=== PATIENT | female | born 1945 | race Caucasian/White ===

== ENCOUNTER → 2016-08-21 | Outpatient (CLI) | payer MEDICARE ==
--- NOTE | 2016-08-21 15:09 | REP ---
Whole body radionuclide bone scan: History: Breast carcinoma, hypercalcemia, elevated alkaline phosphatase. No comparison study. Technique: 21.7 mCi of technetium 99m MDP is injected and standard whole body bone scan imaging was acquired. Scintigraphic findings: There is arthritic uptake in the acromioclavicular joints, glenohumeral joints, hips, knees and feet bilaterally. Osteoarthritic facet disease uptake is seen in the lower lumbar spine and in the lower cervical spine. A rotoscoliosis is seen in the thoracolumbar spine with some degenerative disc uptake pattern. There is uptake in bilateral kidneys and in the urinary bladder. There is no evidence suggestive of skeletal metastatic disease. Impression: Arthritic and degenerative disc uptake pattern with multiple sites. No evidence to suggest skeletal metastatic disease. Signed by Duane Alvarado MD 08/21/2016 03:33 P
== END ==
LOC: M RAD 10:23
PROVIDERS: ATTEND Physician Assistant
DX: Z85.3 Personal history of malignant neoplasm of breast (principal); E83.52 Hypercalcemia; R74.8 Abnormal levels of other serum enzymes
CPT/HCPCS: 78306; A9503

== ENCOUNTER → 2016-09-01 | Outpatient (REF) | payer MEDICARE | LOC: M LAB REF 16:39 | PROVIDERS: ATTEND Nurse Practitioner Adult Health | DX: E83.52 Hypercalcemia (principal) ==

== ENCOUNTER → 2016-12-01 | Outpatient (REF) | payer MEDICARE | LOC: M LAB REF 12:35 | PROVIDERS: ATTEND Nurse Practitioner Adult Health | DX: N39.0 Urinary tract infection, site not specified (principal) ==

== ENCOUNTER → 2017-04-20 | Outpatient (REF) | payer MEDICARE | LOC: M LAB REF 11:46 | PROVIDERS: ATTEND Physician Assistant | DX: L02.416 Cutaneous abscess of left lower limb (principal) ==

== ENCOUNTER → 2017-06-24 | Outpatient (REF) | payer MEDICARE | LOC: M LAB REF 16:51 | PROVIDERS: ATTEND Nurse Practitioner Adult Health | DX: N39.0 Urinary tract infection, site not specified (principal) ==

== ENCOUNTER → 2017-09-21 | Outpatient (REF) | payer MEDICARE ==
[2017-09-22 16:10] LABS: FERRITIN 171 NG/ML (8-252)
== END ==
LOC: M LAB REF 15:21
DX: G25.81 Restless legs syndrome (principal)
CPT/HCPCS: 82728

== ENCOUNTER 2019-04-07 08:50 | Emergency (ER) | payer MEDICARE ==
[~2019-04-07] VITALS: Ht 172.7 cm; Wt 108.9 kg
[2019-04-07] MEDS ORDERED: LISI-538 (08:59)
[2019-04-07] MEDS ORDERED: AMLO5TAB6 (08:59)
[2019-04-07] MEDS ORDERED: ANAS1TAB2 (08:59)
[2019-04-07] MEDS ORDERED: diazePAM 5 MG TAB PO ONE (09:45)
--- NOTE | 2019-04-07 10:19 | REP ---
Abdomen three views: There are two supine one upright views of the abdomen: The bowel gas pattern is normal. There are nonspecific pelvic calcifications. There is lumbar scoliosis convex left and degenerative disc disease in the lumbar spine. Impression: Normal bowel gas pattern. Nonspecific pelvic calcifications. Electronically Signed by Ciro Hilton MD 04/07/2019 10:10 A
[2019-04-07] MEDS ORDERED: FLEET ENEMA PR ONE (10:45)
[2019-04-07] MEDS ORDERED: MOM 30ML SUSPENSION UDC PO ONE (11:30)
[2019-04-07 11:47] VITALS: BP 168/85
[2019-04-07] MEDS ORDERED: MIRA3350 PO (11:48)
== END 2019-04-07 12:05 | disposition home or self-care (01) ==
LOC: M ED 08:50
DX: K59.00 Constipation, unspecified (principal); I10 Essential (primary) hypertension; Z79.899 Other long term (current) drug therapy

== ENCOUNTER → 2020-02-19 | Outpatient (REF) | payer MEDICARE ==
[~2020-02-19] MED LIST: AMLO1TAB24; ANAS1TAB2; LISI-538; MIRA3350 PO
[2020-02-20 14:03] LABS: TOTAL PROTEIN 7.9 GM/DL (6.4-8.2)
[2020-02-22 13:10] LABS: ALBUMIN 4.38 GM/DL (3.29-5.55); ALBUMIN % 55.4 % (55.8-66.1); ALPHA-1-GLOBULIN % 3.4 % (2.9-4.9); ALPHA-1-GLOBULINS 0.27 GM/DL (0.17-0.41); ALPHA-2-GLOBULINS % 12.7 % (7.1-11.8); BETA-1-GLOBULINS 0.57 GM/DL (0.28-0.60); BETA-1-GLOBULINS % 7.2 % (4.7-7.2); BETA-2-GLOBULINS 0.58 GM/DL (0.19-0.55); BETA-2-GLOBULINS % 7.3 % (3.2-6.5); GAMMA GLOBULINS 1.11 GM/DL (0.65-1.58)
== END ==
LOC: M LAB REF 12:03
PROVIDERS: ATTEND Nurse Practitioner Adult Health
DX: R93.6 Abnormal findings on diagnostic imaging of limbs (principal)

== ENCOUNTER → 2020-02-20 | Outpatient (REF) | payer MEDICARE | LOC: M LAB REF 12:12 | PROVIDERS: ATTEND Nurse Practitioner Adult Health | DX: R93.6 Abnormal findings on diagnostic imaging of limbs (principal) ==

== ENCOUNTER → 2020-07-10 | Outpatient (CLI) | payer SELFPAY | LOC: M LABSMTC 12:14 | PROVIDERS: ATTEND Pediatrics | DX: Z20.828 Contact with and (suspected) exposure to other viral communicable diseases (principal) ==

== ENCOUNTER → 2020-09-07 | Outpatient (CLI) | payer MEDICARE, SELFPAY ==
[~2020-09-07] MED LIST changes: -AMLO1TAB24; +AMLO1TAB24 PO; -ANAS1TAB2; +ANAS1TAB2 PO; +D31000TA2 PO; +DOCU-129 PO; -LISI-538; +LISI-538 PO; +OYST1TAB PO; +THERTAB52 PO
== END ==
LOC: M LABSMTC 08:21
PROVIDERS: ATTEND Anesthesiology
DX: Z01.812 Encounter for preprocedural laboratory examination (principal); Z20.822 Contact with and (suspected) exposure to COVID-19

== ENCOUNTER 2020-09-12 10:37 | Day surgery (SDC) | payer MEDICARE ==
[~2020-09-12] VITALS: Ht 174 cm; Wt 111.1 kg
[~2020-09-12 10:37] MED LIST changes: -LISI-538 PO; +LISI20TA33 PO; +MIDAZOLAM INJ 2MG/2ML VIAL (J2250 PER 1MG) As Ordered ONE; +OFLOXACIN 0.3 % (OCUFLOX) OPTH SOL 5ML OS ONE; +PHENYLEPHRINE 2.5% OPHTH SOL 2ML OS ONE; +PROPARACAINE 0.5% OPHTH SOL 15ML OS ONE; +TROPICAMIDE 1% OPHTH SOLN 2ML OS ONE; +fentaNYL 100 MCG/2 ML INJECTION (J3010) As Ordered ONE
[2020-09-12] MEDS ORDERED: POVIDONE-IODINE 5% OPHTH PREP SOL 30ML As Ordered ONE (10:53)
[2020-09-12] MEDS ORDERED: BSS IRR 500ML/OMIDRIA 4ML IRR BAG (OR ONLY) As Ordered ONE (10:53)
[2020-09-12] MEDS ORDERED: CEFUROXIME 1MG/0.1ML INTRACAMERAL INJ As Ordered ONE (10:53)
[2020-09-12] MEDS ORDERED: DUOVISC (0.50ML VISCOAT/0.55ML PROVISC) OPHTH KIT As Ordered ONE (10:53)
[2020-09-12 13:54] VITALS: BP 133/70
== END 2020-09-12 14:03 | disposition home or self-care (01) ==
LOC: M SDC 10:37
PROVIDERS: ATTEND Ophthalmology
DX: H25.12 Age-related nuclear cataract, left eye (principal); I10 Essential (primary) hypertension; K21.9 Gastro-esophageal reflux disease without esophagitis; Z79.899 Other long term (current) drug therapy; Z85.3 Personal history of malignant neoplasm of breast; Z92.21 Personal history of antineoplastic chemotherapy; Z92.3 Personal history of irradiation
CPT/HCPCS: 66984; J1097; J2250; J3010; V2632

== ENCOUNTER → 2020-09-18 | Outpatient (CLI) | payer MEDICARE ==
[~2020-09-18] MED LIST changes: -MIDAZOLAM INJ 2MG/2ML VIAL (J2250 PER 1MG) As Ordered ONE; -OFLOXACIN 0.3 % (OCUFLOX) OPTH SOL 5ML OS ONE; -PHENYLEPHRINE 2.5% OPHTH SOL 2ML OS ONE; -PROPARACAINE 0.5% OPHTH SOL 15ML OS ONE; -TROPICAMIDE 1% OPHTH SOLN 2ML OS ONE; -fentaNYL 100 MCG/2 ML INJECTION (J3010) As Ordered ONE
== END ==
LOC: M LABSMTC 10:53
PROVIDERS: ATTEND Anesthesiology
DX: Z20.828 Contact with and (suspected) exposure to other viral communicable diseases (principal)

== ENCOUNTER 2020-09-23 09:53 | Day surgery (SDC) | payer MEDICARE ==
[~2020-09-23] VITALS: Ht 172.7 cm; Wt 107.1 kg
[~2020-09-23 09:53] MED LIST changes: +CEFUROXIME 1MG/0.1ML INTRACAMERAL INJ As Ordered ONE; +DUOVISC (0.50ML VISCOAT/0.55ML PROVISC) OPHTH KIT As Ordered ONE; +LIDOCAINE 1% MDV 20ML VIAL SQ PRN; +OFLOXACIN 0.3 % (OCUFLOX) OPTH SOL 5ML OD ONE; +PHENYLEPHRINE 2.5% OPHTH SOL 2ML OD ONE; +POVIDONE-IODINE 5% OPHTH PREP SOL 30ML As Ordered ONE; +PROPARACAINE 0.5% OPHTH SOL 15ML OD ONE; +TROPICAMIDE 1% OPHTH SOLN 2ML OD ONE
--- OUTSIDE RECORDS SUMMARY | 2020-09-23 09:57 | CCD ---
Author Author Herman Bar MD [facility] Organization Herman Bar MD [facility] Address [phone] [address] Phone Care Team Providers Care Sr Community Manager Name Role Phone Tristen Dutta JR, MD PP [phone] Colt Silva DO Unavailable [phone] Reason for Referral No Reason for Referral Recorded Problems Includes: Active, inactive, and resolved Problems All Visits Onset Date - Time Resolved Date - Time Provider Co ndition Status Pseudophakia 09/13/2020 - 12:00AM Colt Silva DO Active 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 021 - 12:00AM 09/13/2020 - 8:37AM Colt Silva DO Resolved Cataract Senile Nuclear 08/27/2020 - 12:00AM Colt white DO Active Dry Eye Syndrome 08/27/2020 - 12:00AM Colt cho DO Active Vitreous Disorders Degeneration 08/27/2020 - 12:00AM Francine Silva DO Active Plan of Treatment Pending Tests Order Diagnosis Results Due Ordering Provi delfina Testing Ordered - AScan A-Scan IOL Master Posterior subcap sular polar age- related cataract, left eye 10/26/20 Colt Silva DO Future Appointments Date Time Location Provider Extracapsular cataract removal w/IOL implant 09/23/2020 7:3 0AM [facility] Colt Silva DO 1 Week Post OP 10/01/2020 8:20AM Herman Bar MD [facility] Francine Silva DO Assessments Includes: Assessments for all patient encounters Findings Encounter Date Nuclear senile cataract POST OP VISIT WITH PRE-OP with Andre Silva DO 09/13/2020 Pseudophakia POST OP VISIT WITH PRE-OP with Colt Nerissa white DO 09/13/2020 Nuclear senile cataract 1 WK PREOP FOR SURGERY with Colt Shira TIPTON 09/02/2020 Posterior subcapsular polar senile cataract of left ey e 1 WK PREOP FOR SURGERY with Colt Boucherbilly TIPTON 09/02/2020 Dry eye syndrome NEW PATIENT WITH REFERRAL with Colt Nerissa white DO 08/27/2020 Nuclear senile cataract NEW PATIENT WITH REFERRAL with Andre Boucherbilly TIPTON 08/27/2020 Posterior subcapsular polar senile cataract of left ey e NEW PATIENT WITH REFERRAL with Colt Shira TIPTON 08/27/2020 Vitreous degeneration NEW PATIENT WITH REFERRAL with Colt Shira TIPTON 08/27/2020 Instructions Instructions not supported for this document typeNo Instructions Recorded Medical Equipment - Implanted Devices Includes: Current and historical DevicesNo Medical Equipment Recorded Medications Includes: Current and historical Medications Current Medications (continue as prescribed) Moxifloxacin HCl 0.5% Ophthalmic Solution 09/02/2020 Provider: Colt Silva DO Diagnosis: Age-related nuclear cataract, left eye Three days prior to surgery start one drop four times a day in the left eye BromSite 0.075% Ophthalmic Solution 09/02/2020 Prov ider: Colt Silva DO Diagnosis: Age-related nuclear cataract, left eye Three days prior to surgery start one dr op two times a day in the left eye, RUN CARD. SEE PHARM NOTES Inveltys 1% Ophthalmic Suspension 09/02/2020 Provid er: Colt Silva DO Diagnosis: Age-related nuclear cataract, left eye Day of surgery remove patch start one dr op two times a day in the left eye, RUN CARD. SEE PHARM NOTES amLODIPine Besylate 5 MG Oral Tablet 08/27/2020 Pro vider: Diagnosis: Lisinopril 20 MG Oral Tablet 08/27/2020 Provider: Diagnosis: Anastrozole 1 MG Oral Tablet 08/27/2020 Provider: Diagnosis: Medications Administered Includes: Administered Medications in patient's chartNo Administered Medications Recorded Vital Signs Includes: Vital Signs from 09/13/2019 through 09/13/2020No Vital Signs Recorded For Specified Dates Results Includes: Results from 09/13/2019 through 09/13/2020No Results Recorded For Specified Dates History of Present Illness History of Present Illness not supported for this document typeNo History of Present Illness Recorded Social History Description Last Updated No tobacco use 08/27/2020 Not using alcohol 08/27/2020 Not using drugs 08/27/2020 Smoking status : Never smoker 08/27/2020 Tobacco non-user 08/27/2020 Procedures and Surgical History Includes: Procedures from 09/13/2019 through 09/13/2020 Procedures Code Diagnosis Performing Provider Service Location Service Date Ophthalmic biometry - IOL Master with IOL calculation (RT, 2 6) 46403 Age-related nuclear cataract, right eye Colt Silva DO 09/13/2020 Intermediate Eye Exam Established Patient (Signi/Sep Eval. & Man.) 43151 Age- related nuclear cataract, left eye, Posterior subcapsular polar age-related cataract, left eye Colt De La Cruz MD [facility] 09/02/2020 Ophthalmic biometry - IOL Master with IO L calculation (Left side, WAIVER OF LIABILITY ON FILE (ABN)) 27798 Age-related nuclear cataract, left eye Colt De La Cruz MD [facility] 09/02/2020 Medical Eye Exam [id number] Posterior subcapsula r polar age-related cataract, left eye, Age-related nuclear cataract, bilateral Colt Lange MD [facility] 08/27/2020 Surgical History Last Updated Surgical / procedural history 1965, C-Secti on 1966, Lumpectomy 08/27/2020 Medical History Includes: Medical History in patient's chart Description Last Updated History of arthritis 08/27/2020 History of hypertension 08/27/2020 Reported medical history Breast Cancer 2012 Family History Includes: Family History in patient's chart Description Last Updated Maternal history of family history of cancer Paternal history of arthritis 08/27/2020 Paternal history of cataract 08/27/2020 Son's history of family history of cancer 08/27/2020 Review of Systems Review of Systems not supported for this document typeNo Review of Systems Recorded Mental Status Mental Status not supported for this document type Description Oriented to time, place, and person Functional Status Functional Status not supported for this document typeNo Functional Status Recorded Physical Exam Physical Exam not supported for this document typeNo Physical Exam Recorded Immunizations Includes: Immunizations in patient's chartNo Immunizations Recorded Allergies Includes: Active, inactive, and resolved AllergiesNo Known Allergies Encounters Includes: Encounters from 09/13/2019 through 09/13/2020 Encounter Provider Location Date Check-In Time Check-Out Time D iagnosis POST OP VISIT WITH PRE-OP Colt De La Cruz MD [facility] 09/13/2020 8:12AM 9:04AM Cataract Senile Nucl ear, Pseudophakia Extracapsular cataract removal w/IOL implant Colt Polanco in DO [facility] 09/12/2020 09/02/2020 8:10AM 7:04AM 1 WK PREOP FOR SURGERY Colt De La Cruz MD [facility] 09/02/2020 8:11AM 9:23AM Cataract Senile Posterior Rock bcapsular Polar Left Eye, Cataract Senile Nuclear NEW PATIENT WITH REFERRAL Colt De La Cruz MD [facility] 08/27/2020 7:30AM 8:41AM Dry Eye Syndrome, Ca taract Senile Nuclear, Vitreous Disorders Degeneration, 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 Insurance Includes: Active Insurance Policies Plan Name Member ID Group # Subscriber Relationship Effective Da berhane 1 - Medicare Part B [facility] ([facility] [id number] Nazanin Espinoza 2 - [facility] Medicare Complete [facility] in [place] [id number] Mariajose Espinoza Advance Directives Includes: Current Advance DirectivesNo Advance Directives Recorded Health Concerns Includes: Active Health ConcernsNo Active Health Concerns Recorded Goals Includes: Active GoalsNo Active Goals Recorded Interventions Includes: Interventions for active GoalsNo Interventions Recorded Evaluations & Outcomes Includes: Evaluations & Outcomes for active GoalsNo Outcomes Recorded
--- OUTSIDE RECORDS SUMMARY | 2020-09-23 09:57 | CCD | Continuity of Care Document ---
Author Author Nazanin Sethi Organization Unknown Address [address] [place] [address] Phone [phone] Care Team Providers Care Instruction Dean Name Role Phone Jaelyn Pop MD AUTM Unavailable Tristen Dutta JR, MD AUTM Unavailable Rakel Sharif ANP AUTM [phone] [facility] AUTM [phone] Problems Active Problems Provider Date Abnormal glucose level ALBARO Correa Onset: 2 Benign essential hypertension Tristen Dutta MD Onset: 0 01/20/2012 Metabolic syndrome X Tristen Dutta MD Onset: 01/20/2012 Restless legs Tristen Dutta MD Onset: 01/20/2012 Pure hyperglyceridemia Tristen Dutta MD Onset: 01/20/20 12 Essential hypertension Tristen Dutta MD Onset: 01/20/20 12 Personal history of primary malignant neoplasm of breast Col rohanlizzy Dutta MD Onset: 01/20/2012 Social History Type Date Description Comments Sex Unknown ETOH Use Drinks Alcoholic Beverages Rarel y Tobacco Use Start: Unknown Patient has never smoked Allergies, Adverse Reactions, Alerts Description No Known Drug Allergies Medications Active Medications SIG Qnty Indications Ordering Provide r Date Emergen-C Immune Plus Packet occasionally SHARMILA Sethi 06/27/2020 Lisinopril 20mg Tablets Take 1 Tablet Every Day 90tabs SHARMILA Sethi 12/01/2016 Ventolin HFA 108(90Base) mcg/Act A erosol 2 puffs four times a day as needed 1units Re Katz FNP 01/18/2015 Arimidex 1mg Tablets thru [place] starts 10/29/12 Anne Russo, ALBARO 2 Ocuvite Tablets 1 po qd 30tabs Tristen Dutta MD 10/29/2010 Vitamin D3 1000Unit Capsules 1 po qd Tristen Dutta MD 10/29/2010 Amlodipine Besylate 5mg Tablets Take 1 Tablet Every Day 90tabs Tristen Dutta MD 1 Calcium + Vitamin D3 [id number] Chewtabs 1 qam Unknown Medications Administered in Office Medication SIG Qnty Indications Ordering Provider Date Administration Of Flu Vaccine Inj ection Rakel Canales, [facility] 06/27/2020 Administration Of Flu Vaccine Inj ection Rakel Canales, [facility] 06/22/2019 Administration Of Flu Vaccine Inj ection Rakel Canales, [facility] 06/08/2017 Administration Of Flu Vaccine Inj ection Alli Lockwood, [facility] 05/22/2015 Administration Of Flu Vaccine Inj ection Tristen Dutta MD 07/28/2013 Administration Of Flu Vaccine Inj ection Tristen Dutta MD 05/15/2010 Immunization Each Add'l Vacc/To Injection Nazanin Jack, ALBARO 009 Immunizations CPT Code Status Date Vaccine Lot # [id number] Given 06/27/2020 Influenza Vaccin e Quadrivalent Preser/Antibiotic Free Im Use [id number] 74571 Given 06/22/2019 Influenza Vaccin e Quadrivalent Preser/Antibiotic Free Im Use [id number] 14709 Given 02/23/2018 Pneumovax 23 [id number] [id number] Given 06/08/2017 Influenza Vaccin e Quadrivalent Preser/Antibiotic Free Im Use [id number] U-Tetan Given 04/20/2017 Tetanus,Unspecified 82546 Given 05/31/2016 Zostavax Q2037 Given 05/22/2015 Fluvirin Virus Vaccine 46088 01 Q2037 Given 07/28/2013 Fluvirin Virus Vaccine 25971 01 75346 Given 05/15/2010 Influenza Virus Vaccine 25211 Given 05/10/2009 Pneumovax 23 86720 Given 05/10/2009 Influenza Virus Vaccine Vital Signs Date Vital Result Comment 06/27/2020 7:40am BP Systolic 136 mmHg BP Diastolic 64 mmHg Heart Rate 108 /min Height 67.5 inches 5'7.50" Weight 240.00 lb O2 % BldC Oximetry 98 % BMI (Body Mass Index) 37.0 kg/m2 03/15/2020 1:45pm BP Systolic 140 mmHg BP Diastolic 70 mmHg Heart Rate 84 /min Height 67.5 inches 5'7.50" Weight 241.12 lb O2 % BldC Oximetry 97 % RM Air BMI (Body Mass Index) 37.2 kg/m2 Results Test Acquired Date Facility Test Result H/L Range Note Coronavirus 2018 ([facility]) 07/10/2020 [address] [place], [place] [id number] [phone] Coronavirus 2018 ([facility]) <SEE NOTE> 1 Urine Protein Electrophoresis 02/20/[address] [address] [phone] Urine Total Protein 17.3 mg/dL Normal Not Estab. Urine Albumin 54.2 % Normal . Urine Fuaog-3-Bqyrnnkw 0.6 % Normal . Urine Alhza-1-Iackrszn 8.6 % Normal . Urine Beta Globulin 18.3 % Normal . Urine Gamma Globulin 18.4 % Normal . M-Charbel % Not Observed % Normal Not Observed Please Note (SEE NOTE) Normal . 2 Complete Blood Count 02/19/2020 [facility] Retail Loan Originator: [place] [address] [phone] WBC 8.5 x10*3/UL 4.1 - 10.9 RBC 4.63 x10*6/UL 4.20 - 6.30 Hemoglobin 14.1 g/dL 12.0 - 18.0 Hematocrit 41.0 % 37.0 - 51.0 MCV 88.5 fL 80.0 - 97.0 MCH 30.5 pg 26.0 - 32.0 MCHC 34.4 g/dL 31.0 - 38.0 RDW 12.6 % 11.6 - 13.7 PLT 326 x10*3/UL 140 - 440 MPV 8.3 FL 7.8 - 11.0 Lymph % 34.2 % 10.0 - 58.5 Mid % 6.9 % 1.7 - 9.3 Neut % 58.9 % 37.0 - 92.0 Lymph # 2.9 x10*3/UL 0.6 - 4.1 Mid # 0.6 x10*3/UL 0.1 - 0.6 Neut # 5.0 x10*3/UL 2.0 - 7.8 Comprehensive Chem Profile 02/19/2020 [facility], Retail Loan Originator: Dr Tristen Dutta [place], [place] [id number] [phone] Glucose 115 mg/dL High 74 - 99 3 BUN 13 mg/dL 7 - 18 Creatinine 0.9 mg/dL 0.6 - 1.3 Sodium 137 mEq/L 136 - 145 Potassium 4.5 mEq/L 3.5 - 5.1 Chloride 100 mEq/L 98 - 107 Carbon Dioxide 25 mEq/L 21 - 32 Calcium 9.5 mg/dL 8.5 - 10.1 Alk. Phosphatase 124 mg/dL High 46 - 116 Total Bilirubin 0.6 mg/dL 0.2 - 1.0 Ast (Sgot) 24 U/L 15 - 37 Alt (SGPT) 37 U/L 12 - 78 Albumin 4.0 g/dL 3.4 - 5.0 Total Protein 7.8 g/dL 6.4 - 8.2 A/G Ratio 1.05 CALC 1.00 - 1.90 GFR >= 60 mL/min >60 GFR >= 60 mL/min >60 4 Lipid Profile 02/19/2020 [facility] Retail Loan Originator: Dr Tristen Dutta [place], [place] [id number] [phone] Cholesterol 194 mg/dL 131 - 200 Triglycerides 187 mg/dL High 30 - 150 HDL Cholesterol 52 mg/dL 35 - 60 LDL (Calculated) 105 CALC 50 - 159 Ua Dipstick Only 02/19/2020 [facility] Retail Loan Originator: [place] [address] [phone] Urine Color YELLOW Yellow Urine Appearance CLEAR Clear Urine PH 5.0 units 5.0 - 9.0 Urine Specific Arabi 1.025 1.005 - 1.030 Urine Leukocytes TRACE Abnormal Negative Urine Blood NEGATIVE Negative Urine Protein NEGATIVE Negative -Trace Urine Glucose NEGATIVE mg/dL Negative Urine Nitrite NEGATIVE Negative Urine Ketone NEGATIVE mg/dL Negative Urine Bilirubin NEGATIVE Negative Urine Urobilinogen 0.2 mg/dL 0.2 - 1.0 Serum Protein Elect W/RFX 02/19/2020 [facility] [address] [place], [place] [id number] [phone] Albumin % 55.4 % Low 55.8-66.1 Aztjy-0-Blbanhyo % 3.4 % Normal 2.9-4.9 Qadgq-6-Itlksnczs % 12.7 % High 7.1-11.8 Vshl-4-Dxyymssih % 7.2 % Normal 4.7-7.2 Ovww-1-Corfytjtx % 7.3 % High 3.2-6.5 Gamma Globulin % 14.0 % Normal 11.1-18.8 Albumin 4.38 GM/DL Normal 3.29-5.55 Lizsu-9-Rmiouvvjq 0.27 GM/DL Normal 0.17-0.41 Mfxaw-6-Uzlyibhhq 1.00 GM/DL High 0.42-0.99 Bvwr-7-Zsxwahnfo 0.57 GM/DL Normal 0.28-0.60 Xkye-5-Tkmqxnufo 0.58 GM/DL High 0.19-0.55 Gamma Globulins 1.11 GM/DL Normal 0.65-1.58 Total Protein 7.9 GM/DL Normal 6.4-8.2 Spep Interpretation For RFX SEE COMMENT Normal 5 Spep Pathologist Review REV'D BY O ADJAP <SEE NOTE> Normal 6 Complete Blood Count 01/25/2020 [facility] Retail Loan Originator: [place] [address] [phone] WBC 8.8 x10*3/UL 4.1 - 10.9 RBC 4.48 x10*6/UL 4.20 - 6.30 Hemoglobin 13.6 g/dL 12.0 - 18.0 Hematocrit 40.5 % 37.0 - 51.0 MCV 90.2 fL 80.0 - 97.0 MCH 30.4 pg 26.0 - 32.0 MCHC 33.6 g/dL 31.0 - 38.0 RDW 12.9 % 11.6 - 13.7 PLT 291 x10*3/UL 140 - 440 MPV 8.2 FL 7.8 - 11.0 Lymph % 36.2 % 10.0 - 58.5 Mid % 7.6 % 1.7 - 9.3 Neut % 56.2 % 37.0 - 92.0 Lymph # 3.2 x10*3/UL 0.6 - 4.1 Mid # 0.7 x10*3/UL High 0.1 - 0.6 Neut # 4.9 x10*3/UL 2.0 - 7.8 Comprehensive Chem Profile 01/25/2020 [facility] Retail Loan Originator: [place] [address] [phone] Glucose 107 mg/dL High 74 - 99 7 BUN 15 mg/dL 7 - 18 Creatinine 0.9 mg/dL 0.6 - 1.3 Sodium 139 mEq/L 136 - 145 Potassium 4.6 mEq/L 3.5 - 5.1 Chloride 101 mEq/L 98 - 107 Carbon Dioxide 25 mEq/L 21 - 32 Calcium 9.2 mg/dL 8.5 - 10.1 Alk. Phosphatase 124 mg/dL High 46 - 116 Total Bilirubin 0.6 mg/dL 0.2 - 1.0 Ast (Sgot) 18 U/L 15 - 37 Alt (SGPT) 26 U/L 12 - 78 Albumin 3.8 g/dL 3.4 - 5.0 Total Protein 7.7 g/dL 6.4 - 8.2 A/G Ratio 0.97 CALC Low 1.00 - 1.90 GFR >= 60 mL/min >60 GFR >= 60 mL/min >60 8 1 Test: COVID-19 Nasal/Naspharynx Result: NOT DETECTED Reference Units: Not detected Note: Please consider re-collection of a new specimen, if clinically indicated. NOTE: This test has not been FDA cleared or approved. This test has been authorized by FDA under [id number] s004 for use by [facility], located at [address] [place] [address]. [facility] is designated as a high complexity laboratory by the Clinical Laboratory Improvement Amendments of 1988(CLIA) and is qualified to perform this test. This test has been authorized only for the detection of nucleic acid from SARSCoV-2, not for any other viruses or pathogens. This test is only authorized for the duration of the declaration that circumstances exist justifying the authorization of emergency use of in vitro diagnostic tests for detection and/or diagnosis of COVID-19 under Section 564(b)(1) of the Federal Food, Drug and Cosmetic Act,21 U.S.C. 360bbb-3(b)(1), unless the authorization is terminated or revoked sooner. All positive samples have been individually repeated for confirmation. ASSAY INFORMATION: TMA 2 . Protein electrophoresis scan will follow via computer, mail, or lumber inspector delivery. Performed at: RN - [facility] [address] [id number] Retail Loan Originator: Gena Cordova MD, Phone: [phone] 3 100-125 mg/dL PRE-DIABET ES/FASTING >126 mg/dL DIABETES/FASTING 4 CHRONIC KIDNEY DISEASE STAGI NG PER NKF STAGE I & II GFR >= 60 NORMAL TO MILDLY DECREASED STAGE III GFR 30-59 MODERATELY DECREASED STAGE IV GFR 15-29 SEVERELY DECREASED STAGE V GFR <15 VERY LITTLE GFR LEFT ESRD GFR <15 ON GREEN CHAIN OPERATOR 5 NO M-SPIKE(S)NOTED. 6 REV'D BY Laron DUNCAN 7 100-125 mg/dL PRE-DIABET ES/FASTING >126 mg/dL DIABETES/FASTING 8 CHRONIC KIDNEY DISEASE STAGI NG PER NKF STAGE I & II GFR >= 60 NORMAL TO MILDLY DECREASED STAGE III GFR 30-59 MODERATELY DECREASED STAGE IV GFR 15-29 SEVERELY DECREASED STAGE V GFR <15 VERY LITTLE GFR LEFT ESRD GFR <15 ON GREEN CHAIN OPERATOR Procedures Date Code Description Status 10/11/2019 [id number] Mammogram Completed 09/22/2018 [id number] Mammogram Completed 03/17/2018 [id number] Bone Mineral Density Test Comple frank 03/15/2018 [id number] Bone Mineral Density Test Comple frank 08/18/2017 [id number] Mammogram Completed 02/07/2016 [id number] Bone Mineral Density Test Comple frank 11/28/2015 [id number] Colonoscopy Completed 02/01/2014 [id number] Bone Mineral Density Test Comple frank 12/26/2012 [id number] Mammogram Completed 12/25/2011 [id number] Mammogram Completed 12/15/2010 [id number] Mammogram Completed 05/23/2010 [id number] Colonoscopy Completed 05/22/2009 [id number] Mammogram Completed 05/14/2008 [id number] Bone Mineral Density Test Comple frank 02/16/2008 [id number] Colonoscopy Completed Medical Devices Description No Information Available Encounters Type Date Location Provider Dx Diagnosis Office Visit 06/27/2020 7:40a [facility] SHARMILA Sethi I10 Essential (primary) hypertension E78.2 Mixed hyperlipidemia M15.0 Primary generalized (osteo)a rthritis E66.09 Other obesity due to excess calories Z68.37 Body mass index [BMI] 37.0-3 7.9, adult Z85.3 Personal history of malignan t neoplasm of breast Z23 Encounter for immunization Office Visit 03/15/2020 2:00p [facility]una I10 Essential (primary) hypertension E78.2 Mixed hyperlipidemia M15.0 Primary generalized (osteo)a rthritis R93.6 Abnormal findings on diagnos tic imaging of limbs Z85.3 Personal history of malignan t neoplasm of breast E66.09 Other obesity due to excess calories Z68.37 Body mass index (BMI) 37.0-3 7.9, adult Z13.89 Encounter for screening for other disorder Office Visit 02/20/2020 9:00a [facility] Briggs ne, SURVEY RESEARCH TEACHER R93.6 Abnormal findings on diagnostic imaging of limbs I10 Essential (primary) hyperten ruiz E78.2 Mixed hyperlipidemia M15.0 Primary generalized (osteo)a rthritis Z85.3 Personal history of malignan t neoplasm of breast E66.09 Other obesity due to excess calories Z68.37 Body mass index (BMI) 37.0-3 7.9, adult Assessments Date Code Description Provider 06/27/2020 I10 Essential (primary) hypertension SHARMILA Sethi 06/27/2020 E78.2 Mixed hyperlipidemia SHARMILA Sethi 06/27/2020 M15.0 Primary generalized (osteo)arthr itis Rakel Canales, [employer]Y RESEARCH TEACHER 06/27/2020 E66.09 Other obesity due to excess ezequiel leanne Rakel Canales, SUR[employer]Y RESEARCH TEACHER 06/27/2020 Z68.37 Body mass index [BMI] 37.0-37.9, adult Rakel Canales, SUR[employer] RESEARCH TEACHER 06/27/2020 Z85.3 Personal history of malignant ne oplasm of breast Rakel Canales, SUR[employer]Y RESEARCH TEACHER 06/27/2020 Z23 Encounter for immunization Rakel Chu, SURVEY RESEARCH TEACHER 03/15/2020 I10 Essential (primary) hypertension Rakel Canales, SUR[employer]Y RESEARCH TEACHER 03/15/2020 E78.2 Mixed hyperlipidemia Rakel Canales , [employer]Y RESEARCH TEACHER 03/15/2020 M15.0 Primary generalized (osteo)arthr itis Rakel Canales, [facility] 03/15/2020 R93.6 Abnormal findings on diagnostic imaging of limbs Rakel Canales, [employer] RESEARCH TEACHER 03/15/2020 Z85.3 Personal history of malignant ne oplasm of breast Rakel Canales, SUR[employer]Y RESEARCH TEACHER 03/15/2020 E66.09 Other obesity due to excess ezequiel leanne Rakel Canales, [facility] 03/15/2020 Z68.37 Body mass index (BMI) 37.0-37.9, adult Rakel Canales, [facility] 03/15/2020 Z13.89 Encounter for screening for othe r disorder Rakel Canales, [facility] 02/20/2020 R93.6 Abnormal findings on diagnostic imaging of limbs Rakel Canales, [employer] RESEARCH TEACHER 02/20/2020 I10 Essential (primary) hypertension Rakel Canales, [facility] 02/20/2020 E78.2 Mixed hyperlipidemia Rakel Canales , [facility] 02/20/2020 M15.0 Primary generalized (osteo)arthr itis Rakel Canales, [facility] 02/20/2020 Z85.3 Personal history of malignant ne oplasm of breast Rakel Canales, [facility] 02/20/2020 E66.09 Other obesity due to excess ezequiel leanne Rakel Canales, [facility] 02/20/2020 Z68.37 Body mass index (BMI) 37.0-37.9, adult Rakel Canales, [facility] 02/19/2020 I10 Essential (primary) hypertension Rakel Shani [place], SUR[employer]Y RESEARCH TEACHER 02/19/2020 I10 Essential (primary) hypertension Lab Schedule 02/19/2020 E78.2 Mixed hyperlipidemia SHARMILA Sethi 02/19/2020 E78.2 Mixed hyperlipidemia Lab Schedul e 01/25/2020 I10 Essential (primary) hypertension Tristen Dutta MD 01/25/2020 I10 Essential (primary) hypertension Lab Schedule Plan of Treatment Future Appointment(s):* 03/19/2021 7:45 am - Lab Schedule at [facility] * 03/20/2021 9:20 am - SHARMILA Sethi at [facility] * 03/20/2021 9:00 am - [facility] 06/27/2020 - SHARMILA Sethi* I10 Essential (primary) hypertension* Comments:* controlled on her current treatment plan of Amlodipine and Lisinopril. Will check BMP next visit. * Recommendations:* Recommend you eat 4-5 servings of fruits and vegetables daily. Also exercise 30 minutes daily. * E78.2 Mixed hyperlipidemia* Comments:* she is not currently taking a statin. Last lipids acceptable * Recommendations:* low cholesterol diet. * M15.0 Primary generalized (osteo)arthritis* Comments:* Recommend 30 minutes of exercise daily. Weight loss especially important to improve arthritis symptoms with exercise. * E66.09 Other obesity due to excess calories* Comments:* Diet and exercise discussed. * Z68.37 Body mass index [BMI] 37.0-37.9, adult * Z85.3 Personal history of malignant neoplasm of breast* Comments:* Remains current with mammogram. No evidence of recurrence. * Z23 Encounter for immunization * All * New Medication:* Emergen-C Immune Plus - occasionally * Referral:* Herman Bar MD, Ophthalmology Functional Status Description No Information Available Mental Status Description No Information Available Referrals Refer to Dr Reason for Referral Status Appt Date Herman Bar MD IS CONSULTANT CONSULT FOR CATARACT EVALUATION [facility] [address] [place] [id number] [phone]
--- OUTSIDE RECORDS SUMMARY | 2020-09-23 09:57 | CCD | Continuity of Care Document ---
Author Author Nazanin Sethi Organization Unknown Address [address] [place] [address] Phone [phone] Care Team Providers Care Pulp Mixer Name Role Phone Jaelyn Pop MD AUTM Unavailable Tristen Dutta JR, MD AUTM Unavailable Rakel Sharif ANP AUTM [phone] [facility] AUTM [phone] Problems Active Problems Provider Date Abnormal glucose [...] Dutta MD 1 Calcium + Vitamin D3 [id number] Chewtabs 1 qam Unknown Medications Administered in Office Medication SIG Qnty Indications Ordering Provider Date Administration Of Flu Vaccine Inj ection Rakel Canales, [facility] 06/27/2020 Administration Of Flu Vaccine Inj ection Rakel Canales, [facility] 06/22/2019 Administration Of Flu Vaccine Inj ection Rakel Canales, [facility] 06/08/2017 Administration Of Flu Vaccine Inj ection Alli Lockwood, [facility] 05/22/2015 Administration Of Flu Vaccine Inj ection Tristen Dutta MD 07/28/2013 Administration Of Flu Vaccine Inj ection Tristen Dutta MD 05/15/2010 Immunization Each Add'l Vacc/To Injection Nazanin Jack, ALBARO 009 Immunizations CPT Code Status Date Vaccine Lot # [id number] Given 06/27/2020 Influenza Vaccin e Quadrivalent Preser/Antibiotic Free Im Use [id number] Given 06/22/2019 Influenza Vaccin e Quadrivalent Preser/Antibiotic Free Im Use [id number] 56107 Given 02/23/2018 Pneumovax 23 [id number] Given 06/08/2017 Influenza Vaccin e Quadrivalent Preser/Antibiotic Free Im Use [id number] U-Tetan Given 04/20/2017 Tetanus,Unspecified 78711 Given 05/31/2016 Zostavax [id number] Given 05/22/2015 Fluvirin Virus Vaccine 06089 01 Q2037 Given 07/28/2013 Fluvirin Virus Vaccine 29583 01 59353 Given 05/15/2010 Influenza Virus Vaccine 91289 Given 05/10/2009 Pneumovax 23 41127 Given 05/10/2009 Influenza Virus Vaccine Vital Signs [...] Date Facility Test Result H/L Range Note Urine Protein Electrophoresis 02/20/2020 [facility] [address] [place] [address] [phone] Urine Total Protein 17.3 mg/dL Normal Not Estab. Urine Albumin 54.2 % Normal . Urine Neavx-1-Ukrbfxqp 0.6 % Normal . Urine Ucflv-9-Xlsrnior 8.6 % Normal . Urine Beta Globulin 18.3 % Normal . Urine Gamma Globulin 18.4 % Normal . M-Charbel % Not Observed % Normal Not Observed Please Note (SEE NOTE) Normal . 1 Complete Blood Count 02/19/2020 [facility] Ornament Stitcher: [place] [address] [phone] WBC 8.5 x10*3/UL 4.1 - 10.9 RBC [...] 2.0 - 7.8 Comprehensive Chem Profile 02/19/2020 [facility] Ornament Stitcher: Dr Tristen Dutta [place], [place] [id number] [phone] Glucose 115 mg/dL High 74 - 99 2 BUN 13 mg/dL 7 - 18 Creatinine [...] mL/min >60 GFR >= 60 mL/min >60 3 Lipid Profile 02/19/2020 [facility] , Ornament Stitcher: [place] [address] [phone] Cholesterol 194 mg/dL 131 - 200 Triglycerides 187 mg/dL High 30 - 150 HDL Cholesterol 52 mg/dL 35 - 60 LDL (Calculated) 105 CALC 50 - 159 Ua Dipstick Only 02/19/2020 [facility] , Ornament Stitcher: [place] [address] [phone] Urine Color YELLOW Yellow Urine Appearance CLEAR Clear Urine PH 5.0 units 5.0 - 9.0 Urine Specific Reading 1.025 1.005 - 1.030 Urine Leukocytes TRACE Abnormal Negative Urine Blood NEGATIVE Negative Urine Protein NEGATIVE Negative -Trace Urine Glucose NEGATIVE mg/dL Negative Urine Nitrite NEGATIVE Negative Urine Ketone NEGATIVE mg/dL Negative Urine Bilirubin NEGATIVE Negative Urine Urobilinogen 0.2 mg/dL 0.2 - 1.0 Serum Protein Elect W/RFX 02/19/2020 [facility] [address] [place] [address] [phone] Albumin % 55.4 % Low 55.8-66.1 Fpdxr-6-Vwvqmlaw % 3.4 % Normal 2.9-4.9 Ebfgp-4-Mydmwblwh % 12.7 % High 7.1-11.8 Krvx-0-Diwfdqbca % 7.2 % Normal 4.7-7.2 Qzaa-1-Sdtuayynq % 7.3 % High 3.2-6.5 Gamma Globulin % 14.0 % Normal 11.1-18.8 Albumin 4.38 GM/DL Normal 3.29-5.55 Yiuhr-9-Jwiluoefs 0.27 GM/DL Normal 0.17-0.41 Artbs-9-Oisqhpzpt 1.00 GM/DL High 0.42-0.99 Flqv-6-Ngprtcqck 0.57 GM/DL Normal 0.28-0.60 Mfbq-8-Zvyytrjoa 0.58 GM/DL High 0.19-0.55 Gamma Globulins 1.11 GM/DL Normal 0.65-1.58 Total Protein 7.9 GM/DL Normal 6.4-8.2 Spep Interpretation For RFX SEE COMMENT Normal 4 Spe[facility] Pathologist Review REV'D BY O ADJAP <SEE NOTE> Normal 5 Complete Blood Count 01/25/2020 [facility] Ornament Stitcher: Dr [place]isten [place], [place] [address] [phone] WBC 8.8 x10*3/UL 4.1 - 10.9 RBC [...] 2.0 - 7.8 Comprehensive Chem Profile 01/25/2020 [facility] Ornament Stitcher: Dr Tristen Dutta [place], [place] [id number] [phone] Glucose 107 mg/dL High 74 - 99 6 BUN 15 mg/dL 7 - 18 Creatinine [...] mL/min >60 GFR >= 60 mL/min >60 7 1 . Protein electrophoresis scan will follow via computer, mail, or glass processing worker delivery. Performed at: RN - [facility] [address] [id number] Ornament Stitcher: Gena Cordova MD, Phone: [phone] 2 100-125 mg/dL PRE-DIABET ES/FASTING >126 mg/dL DIABETES/FASTING 3 CHRONIC KIDNEY DISEASE STAGI NG PER NKF STAGE I & II GFR >= 60 NORMAL TO MILDLY DECREASED STAGE III GFR 30-59 MODERATELY DECREASED STAGE IV GFR 15-29 SEVERELY DECREASED STAGE V GFR <15 VERY LITTLE GFR LEFT ESRD GFR <15 ON CORRECTIONAL SERGEANT 4 NO M-SPIKE(S)NOTED. 5 REV'D BY Laron DUNCAN 6 100-125 mg/dL PRE-DIABET ES/FASTING >126 mg/dL DIABETES/FASTING 7 CHRONIC KIDNEY DISEASE STAGI NG PER NKF STAGE I & II GFR >= 60 NORMAL TO MILDLY DECREASED STAGE III GFR 30-59 MODERATELY DECREASED STAGE IV GFR 15-29 SEVERELY DECREASED STAGE V GFR <15 VERY LITTLE GFR LEFT ESRD GFR <15 ON CORRECTIONAL SERGEANT Procedures Date Code Description Status 10/11/2019 [id number] Mammogram Completed 09/22/2018 [id number] Mammogram Completed 03/17/2018 [id number] Bone Mineral Density Test Comple frank 03/15/2018 [id number] Bone Mineral Density Test Comple frank 08/18/2017 [id number] Mammogram Completed 02/07/2016 [id number] Bone Mineral Density Test Comple frank 11/28/2015 [id number] Colonoscopy Completed 02/01/2014 [id number] Bone Mineral Density Test Comple frank 12/26/2012 [id number] Mammogram Completed 12/25/2011 [id number] Mammogram Completed 12/15/2010 [id number] Mammogram Completed 05/23/2010 [id number] Colonoscopy Completed 05/22/2009 [id number] Mammogram Completed 05/14/2008 [id number] Bone Mineral Density Test Comple frank 02/16/2008 [id number] Colonoscopy Completed Medical Devices Description No Information Available Encounters Type Date Location Provider Dx Diagnosis Office Visit 06/27/2020 7:40a [facility] [place] I10 Essential (primary) hypertension E78.2 Mixed hyperlipidemia M15.0 Primary generalized (osteo)a rthritis E66.09 Other obesity due to excess calories Z68.37 Body mass index [BMI] 37.0-3 7.9, adult Z85.3 Personal history of malignan t neoplasm of breast Z23 Encounter for immunization Office Visit 03/15/2020 2:00p [facility] [place] I10 Essential (primary) hypertension E78.2 Mixed hyperlipidemia M15.0 Primary generalized (osteo)a rthritis R93.6 Abnormal findings on diagnos tic imaging of limbs Z85.3 Personal history of malignan t neoplasm of breast E66.09 Other obesity due to excess calories Z68.37 Body mass index (BMI) 37.0-3 7.9, adult Z13.89 Encounter for screening for other disorder Office Visit 02/20/2020 9:00a [facility] Coughlin, BANK CONSULTANT R93.6 Abnormal findings on diagnostic imaging of limbs I10 Essential (primary) hyperten ruiz E78.2 Mixed hyperlipidemia M15.0 Primary generalized (osteo)a rthritis Z85.3 Personal history of malignan t neoplasm of breast E66.09 Other obesity due to excess calories Z68.37 Body mass index (BMI) 37.0-3 7.9, adult Assessments Date Code Description Provider 06/27/2020 I10 Essential (primary) hypertension Rakel Canales, [facility] 06/27/2020 E78.2 Mixed hyperlipidemia Rakel Canales , [facility] 06/27/2020 M15.0 Primary generalized (osteo)arthr itis Rakel Canales, [facility] 06/27/2020 E66.09 Other obesity due to excess ezequiel leanne Rakel Canales, [facility] 06/27/2020 Z68.37 Body mass index [BMI] 37.0-37.9, adult Rakel Canales, [facility] 06/27/2020 Z85.3 Personal history of malignant ne oplasm of breast Rakel Canales, [facility] 06/27/2020 Z23 Encounter for immunization Rakel Chu, [facility] 03/15/2020 I10 Essential (primary) hypertension Rakel Canales, [facility] 03/15/2020 E78.2 Mixed hyperlipidemia Rakel Canales , [facility] 03/15/2020 M15.0 Primary generalized (osteo)arthr itis Rakel Canales, [facility] 03/15/2020 R93.6 Abnormal findings on diagnostic imaging of limbs Rakel Canales, [facility] 03/15/2020 Z85.3 Personal history of malignant ne oplasm of breast Rakel Canales, [facility] 03/15/2020 E66.09 Other obesity due to excess ezequiel leanne Rakel Canales, [facility] 03/15/2020 Z68.37 Body mass index (BMI) 37.0-37.9, adult Rakel Canales, [facility] 03/15/2020 Z13.89 Encounter for screening for othe r disorder Rakel Canales, [facility] 02/20/2020 R93.6 Abnormal findings on diagnostic imaging of limbs Rakel Canales, [facility] 02/20/2020 I10 Essential (primary) hypertension Rakel Canales, [facility] 02/20/2020 E78.2 Mixed hyperlipidemia Rakel [facility] [place] , [facility] 02/20/2020 M15.0 Primary generalized (osteo)arthr itis Rakel Canales, [facility] 02/20/2020 Z85.3 Personal history of malignant ne oplasm of breast Rakel Canales, [facility] 02/20/2020 E66.09 Other obesity due to excess ezequiel leanne Rakel Canales, [facility] 02/20/2020 Z68.37 Body mass index (BMI) 37.0-37.9, adult SHARMILA Sethi 02/19/2020 I10 Essential (primary) hypertension SHARMILA Sethi 02/19/2020 I10 Essential (primary) hypertension Lab Schedule 02/19/2020 E78.2 Mixed hyperlipidemia Rakel SHARMILA Canales 02/19/2020 E78.2 Mixed hyperlipidemia Lab Schedul e 01/25/2020 I10 Essential (primary) hypertension Tristen Dutta MD 01/25/2020 I10 Essential (primary) hypertension Lab Schedule Plan of Treatment Future Appointment(s):* 03/19/2021 7:45 am - Lab Schedule at [facility] * 03/20/2021 9:20 am - SHARMILA Sethi at [facility] * 03/20/2021 9:00 am - [facility]2 [facility] 06/27/2020 - SHARMILA Sethi* I10 Essential [...] Referral Status Appt Date Herman Bar MD CONTACT LENS MOLDER CONSULT FOR CATARACT EVALUATION [facility] [place] [facility] [address] [facility], [address] [place] [address] [phone]
--- OUTSIDE RECORDS SUMMARY | 2020-09-23 09:58 | CCD ---
Author Author [facility] Organization [facility] Address Unknown Phone Unavailable Care Team Providers Care Quality Control Assistant Name Role Phone CORAL, J ZURI FLIGHT SURGEON Unavailable Unavailable CORAL, J ZURI FLIGHT SURGEON Unavailable Unavailable CORAL, J ZURI FLIGHT SURGEON Unavailable Unavailable CORAL, J ZURI FLIGHT SURGEON Unavailable Unavailable CORAL, J ZURI FLIGHT SURGEON Unavailable Unavailable CORAL, J ZURI FLIGHT SURGEON Unavailable Unavailable CORAL, J ZURI FLIGHT SURGEON Unavailable Unavailable CORAL, J ZURI FLIGHT SURGEON Unavailable Unavailable CORAL, J ZURI FLIGHT SURGEON Unavailable Unavailable CORAL, J ZURI FLIGHT SURGEON Unavailable Unavailable CORAL, J ZURI FLIGHT SURGEON Unavailable Unavailable CORAL, J ZURI FLIGHT SURGEON Unavailable Unavailable CORAL, J ZURI FLIGHT SURGEON Unavailable Unavailable CORAL, J ZURI FLIGHT SURGEON Unavailable Unavailable OCRAL, J ZURI FLIGHT SURGEON Unavailable Unavailable CORAL, J ZURI FLIGHT SURGEON Unavailable Unavailable CORAL, J ZURI FLIGHT SURGEON Unavailable Unavailable CORAL, J ZURI FLIGHT SURGEON Unavailable Unavailable CORAL, J ZURI FLIGHT SURGEON Unavailable Unavailable CORAL, J ZURI FLIGHT SURGEON Unavailable Unavailable CORAL, J ZURI FLIGHT SURGEON Unavailable Unavailable CORAL, J ZURI FLIGHT SURGEON Unavailable Unavailable CORAL, J ZURI FLIGHT SURGEON Unavailable Unavailable CORAL, J ZURI FLIGHT SURGEON Unavailable Unavailable CORAL, J ZURI FLIGHT SURGEON Unavailable Unavailable CORAL, J ZURI FLIGHT SURGEON Unavailable Unavailable TING ALCAZAR Unavailable Unavailable LAMBERT, Enrike ROUSE MD Unavailable Unavailable LAMBERT, Enrike ROUSE MD Unavailable Unavailable LAMBERT, Enrike ROUSE MD Unavailable Unavailable LAMBERT, Enrike ROUSE MD Unavailable Unavailable LAMBERT, Ernike ROUSE MD Unavailable Unavailable LAMBERT, Enrike ROUSE MD Unavailable Unavailable LAMBERT, Enrike ROUSE MD Unavailable Unavailable LAMBERT, Enrike ROUSE MD Unavailable Unavailable LAMBERT, Enrike ROUSE MD Unavailable Unavailable LAMBERT, Enrike ROUSE MD Unavailable Unavailable LAMBERT, Enrike ROUSE MD Unavailable Unavailable LAMBERT, Enrike ROUSE MD Unavailable Unavailable LAMBERT, Enrike ROUSE MD Unavailable Unavailable LAMBERT, Enrike ROUSE MD Unavailable Unavailable LAMBERT, Enrike ROUSE MD Unavailable Unavailable LAMBERT, Enrike ROUSE MD Unavailable Unavailable LAMBERT, Enrike ROUSE MD Unavailable Unavailable LAMBERT, Enrike ROUSE MD Unavailable Unavailable LAMBERT, Enrike ROUSE MD Unavailable Unavailable LAMBERT, Enrike ROUSE MD Unavailable Unavailable LAMBERT, Enrike ROUSE MD Unavailable Unavailable LAMBERT, Enrike ROUSE MD Unavailable Unavailable LAMBERT, Enrike ROUSE MD Unavailable Unavailable LAMBERT, Enrike ROUSE MD Unavailable Unavailable LAMBERT, Enrike ROUSE MD Unavailable Unavailable LAMBERT, Enrike ROUSE MD Unavailable Unavailable LAMBERT, Enrike ROUSE MD Unavailable Unavailable LAMBERT, Enrike ROUSE MD Unavailable Unavailable LAMBERT, Enrike ROUSE MD Unavailable Unavailable LAMBERT, Enrike ROUSE MD Unavailable Unavailable LAMBERT, Enrike ROUSE MD Unavailable Unavailable LAMBERT, Enrike ROUSE MD Unavailable Unavailable LAMBERT, Enrike ROUSE MD Unavailable Unavailable CORAL, J ZURI FLIGHT SURGEON Unavailable Unavailable CORAL, J ZURI FLIGHT SURGEON Unavailable Unavailable CORAL, J ZURI FLIGHT SURGEON Unavailable Unavailable CORAL, J ZURI FLIGHT SURGEON Unavailable Unavailable CORAL, J ZURI FLIGHT SURGEON Unavailable Unavailable CORAL, J ZURI FLIGHT SURGEON Unavailable Unavailable CORAL, J ZURI FLIGHT SURGEON Unavailable Unavailable CORAL, J ZURI FLIGHT SURGEON Unavailable Unavailable CORAL, J ZURI FLIGHT SURGEON Unavailable Unavailable CORAL, J ZURI FLIGHT SURGEON Unavailable Unavailable CORAL, J ZURI FLIGHT SURGEON Unavailable Unavailable CORAL, J ZURI FLIGHT SURGEON Unavailable Unavailable CORAL, J ZURI FLIGHT SURGEON Unavailable Unavailable CORAL, J ZURI FLIGHT SURGEON Unavailable Unavailable CORAL, J ZURI FLIGHT SURGEON Unavailable Unavailable CORAL, J ZURI FLIGHT SURGEON Unavailable Unavailable CORAL, J ZURI FLIGHT SURGEON Unavailable Unavailable CORAL, J ZURI FLIGHT SURGEON Unavailable Unavailable CORAL, J ZURI FLIGHT SURGEON Unavailable Unavailable CORAL, J ZURI FLIGHT SURGEON Unavailable Unavailable CORAL, J ZURI FLIGHT SURGEON Unavailable Unavailable CORAL, J ZURI FLIGHT SURGEON Unavailable Unavailable CORAL, J ZURI FLIGHT SURGEON Unavailable Unavailable CORAL, J ZURI FLIGHT SURGEON Unavailable Unavailable CORAL, J ZURI FLIGHT SURGEON Unavailable Unavailable CORAL, J ZURI FLIGHT SURGEON Unavailable Unavailable LePine, M Rakel CHAIN LINK FENCE INSTALLER Unavailable Unavailable LePine, M Rakel CHAIN LINK FENCE INSTALLER Unavailable Unavailable LePine, M Rakel CHAIN LINK FENCE INSTALLER Unavailable Unavailable LePine, M Rakel CHAIN LINK FENCE INSTALLER Unavailable Unavailable LePine, M Rakel CHAIN LINK FENCE INSTALLER Unavailable Unavailable LePine, M Rakel CHAIN LINK FENCE INSTALLER Unavailable Unavailable LePine, M Rakel CHAIN LINK FENCE INSTALLER Unavailable Unavailable LePine, M Rakel CHAIN LINK FENCE INSTALLER Unavailable Unavailable LePine, M Rakel CHAIN LINK FENCE INSTALLER Unavailable Unavailable LePine, M Rakel CHAIN LINK FENCE INSTALLER Unavailable Unavailable LePine, M Rakel CHAIN LINK FENCE INSTALLER Unavailable Unavailable LePine, M Rakel CHAIN LINK FENCE INSTALLER Unavailable Unavailable LePine, M Rakel CHAIN LINK FENCE INSTALLER Unavailable Unavailable LePine, M Rakel CHAIN LINK FENCE INSTALLER Unavailable Unavailable LePine, M Rakel CHAIN LINK FENCE INSTALLER Unavailable Unavailable LePine, M Rakel CHAIN LINK FENCE INSTALLER Unavailable Unavailable LePine, M Rakel CHAIN LINK FENCE INSTALLER Unavailable Unavailable LePine, M Rakel CHAIN LINK FENCE INSTALLER Unavailable Unavailable LePine, M Rakel CHAIN LINK FENCE INSTALLER Unavailable Unavailable LePine, M Rakel CHAIN LINK FENCE INSTALLER Unavailable Unavailable LePine, M Rakel CHAIN LINK FENCE INSTALLER Unavailable Unavailable LePine, M Rakel CHAIN LINK FENCE INSTALLER Unavailable Unavailable LePine, M Rakel CHAIN LINK FENCE INSTALLER Unavailable Unavailable LePine, M Rakel CHAIN LINK FENCE INSTALLER Unavailable Unavailable LePine, M Rakel CHAIN LINK FENCE INSTALLER Unavailable Unavailable LePine, M Rakel CHAIN LINK FENCE INSTALLER Unavailable Unavailable LePine, M Rakel CHAIN LINK FENCE INSTALLER Unavailable Unavailable LePine, M Rakel CHAIN LINK FENCE INSTALLER Unavailable Unavailable LePine, M Rakel CHAIN LINK FENCE INSTALLER Unavailable Unavailable LePine, M Rakel CHAIN LINK FENCE INSTALLER Unavailable Unavailable LePine, M Rakel CHAIN LINK FENCE INSTALLER Unavailable Unavailable LePine, M Rakel CHAIN LINK FENCE INSTALLER Unavailable Unavailable LePine, M Rakel CHAIN LINK FENCE INSTALLER Unavailable Unavailable LePine, M Rakel CHAIN LINK FENCE INSTALLER Unavailable Unavailable LePine, M Rakel CHAIN LINK FENCE INSTALLER Unavailable Unavailable LePine, M Rakel CHAIN LINK FENCE INSTALLER Unavailable Unavailable LePine, M Rakel CHAIN LINK FENCE INSTALLER Unavailable Unavailable LePine, M Rakel CHAIN LINK FENCE INSTALLER Unavailable Unavailable LePine, M Rakel CHAIN LINK FENCE INSTALLER Unavailable Unavailable LePine, M Rakel CHAIN LINK FENCE INSTALLER Unavailable Unavailable LePine, M Rakel CHAIN LINK FENCE INSTALLER Unavailable Unavailable LePine, M Rakel CHAIN LINK FENCE INSTALLER Unavailable Unavailable LePine, M Rakel CHAIN LINK FENCE INSTALLER Unavailable Unavailable LePine, M Rakel CHAIN LINK FENCE INSTALLER Unavailable Unavailable LePine, M Rakel CHAIN LINK FENCE INSTALLER Unavailable Unavailable LePine, M Rakel CHAIN LINK FENCE INSTALLER Unavailable Unavailable LePine, M Rakel CHAIN LINK FENCE INSTALLER Unavailable Unavailable LePine, M Rakel CHAIN LINK FENCE INSTALLER Unavailable Unavailable LePine, M Rakel CHAIN LINK FENCE INSTALLER Unavailable Unavailable LePine, M Rakel CHAIN LINK FENCE INSTALLER Unavailable Unavailable LePine, M Rakel CHAIN LINK FENCE INSTALLER Unavailable Unavailable LePine, M Rakel CHAIN LINK FENCE INSTALLER Unavailable Unavailable LePine, M Rakel CHAIN LINK FENCE INSTALLER Unavailable Unavailable LePine, M Rakel CHAIN LINK FENCE INSTALLER Unavailable Unavailable LePine, M Rakel CHAIN LINK FENCE INSTALLER Unavailable Unavailable LePine, M Rakel CHAIN LINK FENCE INSTALLER Unavailable Unavailable Marissa SILVAEW DO Unavailable [phone] Marissa SILVAEW DO Unavailable [phone] Marissa SILVA NELLY DO Unavailable [phone] Marissa SILVA NELLY DO Unavailable [phone] Marissa SILVA NELLY DO Unavailable [phone] SUMAMarissa NELLY DO Unavailable [phone] Marissa SILVA NELLY DO Unavailable [phone] Marissa SILVA NELLY DO Unavailable [phone] Marissa SILVAEW DO Unavailable [phone] Marissa SILVA NELLY DO Unavailable [phone] Marissa SILVA NELLY DO Unavailable [phone] Marissa SILVA NELLY DO Unavailable [phone] Marissa SILVAEW DO Unavailable [phone] SUMAMarissa RUSSELLEW DO Unavailable [phone] Marissa SILVAEW DO Unavailable [phone] Marissa SILVAEW DO Unavailable [phone] Marissa SILVAEW DO Unavailable [phone] Marissa SILVAEW DO Unavailable [phone] Marissa SILVA NELLY DO Unavailable [phone] Marissa SILVAEW DO Unavailable [phone] Marissa SILVAEW DO Unavailable [phone] Duca, A Yasmeen FLIGHT SURGEON-C Unavailable Unavailable Duca, A Yasmeen FLIGHT SURGEON-C Unavailable Unavailable Duca, A Yasmeen FLIGHT SURGEON-C Unavailable Unavailable Duca, A Yasmeen FLIGHT SURGEON-C Unavailable Unavailable Duca, A Yasmeen FLIGHT SURGEON-C Unavailable Unavailable Duca, A Yasmeen FLIGHT SURGEON-C Unavailable Unavailable Duca, A Yasmeen FLIGHT SURGEON-C Unavailable Unavailable Duca, A Yasmeen FLIGHT SURGEON-C Unavailable Unavailable Duca, A Yasmeen FLIGHT SURGEON-C Unavailable Unavailable Duca, A Yasmeen FLIGHT SURGEON-C Unavailable Unavailable Duca, A Yasmeen FLIGHT SURGEON-C Unavailable Unavailable Duca, A Yasmeen FLIGHT SURGEON-C Unavailable Unavailable Duca, A Yasmeen FLIGHT SURGEON-C Unavailable Unavailable Duca, A Yasmeen FLIGHT SURGEON-C Unavailable Unavailable Duca, A Yasmeen FLIGHT SURGEON-C Unavailable Unavailable Duca, A Yasmeen FLIGHT SURGEON-C Unavailable Unavailable Duca, A Yasmeen FLIGHT SURGEON-C Unavailable Unavailable Duca, A Yasmeen FLIGHT SURGEON-C Unavailable Unavailable Duca, A Yasmeen FLIGHT SURGEON-C Unavailable Unavailable Duca, A Yasmeen FLIGHT SURGEON-C Unavailable Unavailable Duca, A Yasmeen FLIGHT SURGEON-C Unavailable Unavailable Duca, A Yasmeen FLIGHT SURGEON-C Unavailable Unavailable Duca, A Yasmeen FLIGHT SURGEON-C Unavailable Unavailable Duca, A Yasmeen FLIGHT SURGEON-C Unavailable Unavailable Duca, A Yamseen FLIGHT SURGEON-C Unavailable Unavailable Duca, A Yasmeen FLIGHT SURGEON-C Unavailable Unavailable Duca, A Yasmeen FLIGHT SURGEON-C Unavailable Unavailable Duca, A Yasmeen FLIGHT SURGEON-C Unavailable Unavailable Duca, A Yasmeen FLIGHT SURGEON-C Unavailable Unavailable Duca, A Yasmeen FLIGHT SURGEON-C Unavailable Unavailable Duca, A Yasmeen FLIGHT SURGEON-C Unavailable Unavailable Duca, A Yasmeen FLIGHT SURGEON-C Unavailable Unavailable Duca, A Yasmeen FLIGHT SURGEON-C Unavailable Unavailable Duca, A Yasmeen FLIGHT SURGEON-C Unavailable Unavailable Duca, A Yasmeen FLIGHT SURGEON-C Unavailable Unavailable LETTIERE, A AHSAN PA Unavailable Unavailable LETTIERE, A AHSAN PA Unavailable Unavailable LETTIERE, A AHSAN PA Unavailable Unavailable LETTIERE, A AHSAN PA Unavailable Unavailable LETTIERE, A AHSAN PA Unavailable Unavailable LETTIERE, A AHSAN PA Unavailable Unavailable LETTIERE, A AHSAN PA Unavailable Unavailable LETTIERE, A AHSAN PA Unavailable Unavailable LETTIERE, A AHSAN PA Unavailable Unavailable LETTIERE, A AHSAN PA Unavailable Unavailable LETTIERE, A AHSAN PA Unavailable Unavailable LETTIERE, A AHSAN PA Unavailable Unavailable LETTIERE, A AHSAN PA Unavailable Unavailable LETTIERE, A AHSAN PA Unavailable Unavailable LETTIERE, A AHSAN PA Unavailable Unavailable LETTIERE, A AHSAN PA Unavailable Unavailable LETTIERE, A AHSAN PA Unavailable Unavailable LETTIERE, A AHSAN PA Unavailable Unavailable LETTIERE, A AHSAN PA Unavailable Unavailable LETTIERE, A AHSAN PA Unavailable Unavailable LETTIERE, A AHSAN PA Unavailable Unavailable LETTIERE, A AHSAN PA Unavailable Unavailable LETTIERE, A AHSAN PA Unavailable Unavailable LETTIERE, A AHSAN PA Unavailable Unavailable LETTIERE, A AHSAN PA Unavailable Unavailable LETTIERE, A AHSAN PA Unavailable Unavailable LETTIERE, A AHSAN PA Unavailable Unavailable LETTIERE, A AHSAN PA Unavailable Unavailable LETTIERE, A AHSAN PA Unavailable Unavailable Re-disclosure Warning The records that you are about to access may contain information from federally-assisted alcohol or drug abuse programs. If such information is present, then the following federally mandated warning applies: This information has been disclosed to you from records protected by federal confidentiality rules (42 CFR part 2). The federal rules prohibit you from making any further disclosure of this information unless further disclosure is expressly permitted by the written consent of the person to whom it pertains or as otherwise permitted by 42 CFR part 2. A general authorization for the release of medical or other information is NOT sufficient for this purpose. The Federal rules restrict any use of the information to criminally investigate or prosecute any alcohol or drug abuse patient.The records that you are about to access may contain highly sensitive health information, the redisclosure of which is protected by Article 27-F of the [facility] Public Health law. If you continue you may have access to information: Regarding HIV / AIDS; Provided by facilities licensed or operated by the [facility] Office of Mental Health; or Provided by the [facility] Office for People With Developmental Disabilities. If such information is present, then the following [facility] mandated warning applies: This information has been disclosed to you from confidential records which are protected by state law. State law prohibits you from making any further disclosure of this information without the specific written consent of the person to whom it pertains, or as otherwise permitted by law. Any unauthorized further disclosure in violation of state law may result in a fine or senior living sentence or both. A general authorization for the release of medical or other information is NOT sufficient authorization for further disc losure. Allergies and Adverse Reactions Type Description Substance Reaction Status Data Source(s ) Allergy to substance No Known Allergies No known allergies (situation ) [facility] (Herman Levy MD [facility]) Drug Class NO KNOWN ALLERGIES NO KNOWN ALLERGIES [facility] Family History Family Member Name Family Member Gender Family Member Status Date o f Status Description Data Source(s) Unknown Male Problem [facility] ([facility]) () Unknown Unknown Problem [facility] ([facility]) Unknown Unknown Encounters Encounter Providers Location Date Indications Data Source(s ) Outpatient Attender: TINGEnrike ALCAZAR 05/15/2021 12:00:00 AM [facility] Outpatient 01/02/2021 12:00:[address] [facility] Outpatient Attender: Yasmeen GRIFFIN 10/10/2020 12:00:00 AM [facility] Outpatient Referrer: Yasmeen GRIFFIN 10/10/2020 12:00:00 AM [facility] Outpatient<td ID="encounterTypeDescripti onID0">POST OP VISIT WITH PRE- OP</td><td>Nelly Silva DO</td><td>Herman Bar MD [facility]</td><td>09/13/2020</td><td>8:12AM</td><td>9:04AM</td><td><content ID="encounterDiagnosisID0-0">Cataract Senile Nuclear</content>, <content ID="encounterDiagnosisID0-1">Pseudophakia</content></td> Attender: NELLY De La Cruz MD [facility] 09/13/2020 08:12:00 AM EST - 09/13/2020 09:04:00 AM EST PseudophakiaCataract Senile Nuclear [facility] (Hermna Levy MD [facility]) Pseudophakia Cataract Senile Nuclear Outpatient Attender: ZURI GONZALEZ FLIGHT SURGEON [id number] 09/06/2020 0 1:50:53 PM [facility] Outpatient<td ID="encounterTypeDescripti onID2">1 WK PREOP FOR SURGERY</td><td>Nelly Silva DO</td><td>Herman Bar MD [facility]</td><td>09/02/2020</td><td>8:11AM</td><td>9:23AM</td><td><content ID="encounterDiagnosisID2-0">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</content>, <content ID="encounterDiagnosisID2-1">Cataract Senile Nuclear</content></td> Attender: NELLY De La Cruz MD [facility] 09/02/2020 08:11:00 AM EST - 09/02/2020 09:23:00 AM EST 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Cataract Senile Nuclear [facility] (Herman Levy MD [facility]) Cataract Senile Posterior Subcapsular Po lar Left Eye Cataract Senile Nuclear Outpatient<td ID="encounterTypeDescripti onID1">Extracapsular cataract removal w/IOL implant</td><td>Nelly Silva DO</td><td>[facility]</td><td>09/12/2020</td><td>09/02/2020 8:10AM</td><td>7:04AM</td><td></td> Attender: NELLY SILVA DO [facility] 08/10 08:10:00 AM EST - 09/12/2020 07:04:00 AM EST [facility] (Herman Levy [facility]) Outpatient<td ID="encounterTypeDescripti onID3">NEW PATIENT WITH REFERRAL</td><td>Nelly Silva DO</td><td>Herman Bar MD [facility]</td><td>08/27/2020</td><td>7:30AM</td><td>8:41AM</td><td><content ID="encounterDiagnosisID3-0">Dry Eye Syndrome</content>, <content ID="encounterDiagnosisID3-1">Cataract Senile Nuclear</content>, <content ID="encounterDiagnosisID3-2">Vitreous Disorders Degeneration</content>, <content ID="encounterDiagnosisID3-3">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</content></td> Attender: NELLY De La Cruz MD [facility] 08/27/2020 07:30:00 AM EST - 08/27/2020 08:41:00 AM EST 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Vitreous Disorders DegenerationCataract Senile NuclearDry Eye Syndrome [facility] (Herman Levy MD [facility]) Cataract Senile Posterior Subcapsular Po lar Left Eye Vitreous Disorders Degeneration Cataract Senile Nuclear Dry Eye Syndrome Outpatient Attender: Rakel Carpio 06/27 06:40:00 AM EST [facility] ([facility] ) Outpatient Attender: TING ALCAZARReferrer: PADMA Villatoro [id number] 05/17/2020 12:00:00 AM EDT - 05/17/2020 10:36:31 AM EDT Malignant neoplasm of upper-outer quadrant of right female breast [facility] Malignant neoplasm of upper-outer quadra nt of right female breast Outpatient Attender: TING ALCAZAR 04/25/2020 12:00:00 AM [facility] Outpatient Attender: TING ALCAZAR 04/11/2020 12:00:00 AM [facility] Outpatient Attender: ZURI GONZALEZ NP [id number] 03/20/2020 0 7:39:[address] [facility] Outpatient Referrer: ZURI GONZALEZ NP 06/2020 12:00:00 AM EDT - 03/19/2020 11:59:[address] [facility] Outpatient Referrer: ZURI GONZALEZ NP 03/19/2020 12:00:[address] [facility] Outpatient Attender: ZURI GONZALEZ NP [id number] 03/15/2020 0 2:40:[address] [facility] Outpatient Attender: Rakel Carpio 03/15 02:00:00 PM EDT [facility] ([facility] ) Inpatient Referrer: ZURI GONZALEZ NP 03/15/2020 0 1:38:00 PM EDT Pain in left hip [facility] Pain in left hip Outpatient Attender: ZURI GONZALEZ NP [id number] 03/08/2020 1 2:07:[address] [facility] Outpatient Attender: ZURI GONZALEZ NP [id number] 03/07/2020 0 1:11:[address] [facility] Outpatient Attender: Rakel SALDIVAR Luzmaria Navarrochayo 02/19 09:00:00 AM ED[facility] Outpatient Attender: ZURI GONZALEZ NP [id number] [facility] ZURI GONZALEZ FLIGHT SURGEON 02/05/2020 11:15:0 0 AM EDT [facility] Outpatient Referrer: ZURI GONZALEZ FLIGHT SURGEON 02/05/2020 11:13:0 0 AM EDT [facility] Outpatient Referrer: ZURI GONZALEZ FLIGHT SURGEON 02/05/2020 11:13:0 0 AM EDT [facility] Outpatient Referrer: ZURI GONZALEZ FLIGHT SURGEON 02/01/2020 11:58:0 0 AM EDT [facility] Outpatient Referrer: ZURI GONZALEZ FLIGHT SURGEON 02/01/2020 10:28:0 0 AM EDT [facility] Outpatient Attender: ZURI GONZALEZ NP [id number] 01/24/2020 [facility] 0[facility]35[facility] Attender: TING ALCAZARReferrer: Yasmeen Yen [id number] 01/19/2020 12:00:[address] [facility] telemed Outpatient Referrer: ZURI GONZALEZ FLIGHT SURGEON 01/15/2020 03:26:0 0 PM EDT [facility] Outpatient Referrer: ZURI GONZALEZ FLIGHT SURGEON 01/08/2020 09:08:0 0 AM EDT [facility] Outpatient Referrer: ZURI GONZALEZ FLIGHT SURGEON 01/08/2020 09:04:0 0 AM EDT [facility] Outpatient Referrer: ZURI GONZALEZ FLIGHT SURGEON 01/08/2020 08:59:0 0 AM EDT [facility] Outpatient Attender: ZURI GONZALEZ NP [id number] 01/04/2020 1 2:00:00 AM EDT Malignant neoplasm of unspecified site of right female breast [facility] Malignant neoplasm of unspecified site o f right female breast Outpatient Attender: Yasmeen Sosa FLIGHT SURGEON-CReferrer: Yasmeen GRIFFIN [id number] 10/10/2019 12:00:00 AM EST - 10/10/2019 10:16:24 AM EST Personal history of malignant neoplasm of breast [facility] Personal history of malignant neoplasm o f breast Outpatient Referrer: Yasmeen GRIFFIN 10/10/2019 12 :00:00 AM EST Personal history of malignant neoplasm of breast [facility] Personal history of malignant neoplasm o f breast Outpatient Attender: Rakel SALDIVAR Luzmaria Shirin 09/27 12:00:00 PM EST [facility] ([facility] ) Outpatient Attender: AHSAN peter 09/01/2019 08:00:00 AM EST [facility] ([facility]) Immunizations Vaccine Date Status Description Data Source(s) Influenza, injectable, MDCK, preservative free, gerry valent 06/27/2020 06:40:00 AM EST completed [facility] ([facility]) Medications Medication Brand Name Start Date Product Form Dose Route Admi nistrative Instructions Pharmacy Instructions Status Indications Reaction Description Data Source(s) Inveltys 1% Ophthalmic Suspension Inveltys 1% Ophthalmic Amanda pension 09/02/2020 12:00:00 AM EST active loteprednol etabonate 10 MG/ML Ophthalmic Suspension [Inveltys] [facility] (Herman Levy MD [facility]) BromSite 0.075% Ophthalmic Solution BromSite 0.075% Ophthalm ic Solution 09/02/2020 12:00:00 AM EST active bromfenac 0.75 MG/ML Ophthalmic Solution [Bromsite] [facility] (Herman Levy MD [facility]) moxifloxacin 5 MG/ML Ophthalmic Solution Moxifloxacin HCl 0.5% Ophthalmic Solution Moxifloxacin HCl 0.5% Ophthalmic Solution 09/02/2020 12:00:00 AM EST active moxifloxacin 5 MG/ML Oph thalmic Solution [facility] (Herman Levy MD [facility]) Lisinopril 20 MG Oral Tablet Lisinopril 20 MG Oral Tablet 12:00:00 AM EST 1 active lisinopril 20 MG Oral Tablet [facility] (Herman Levy MD [facility]) Amlodipine 5 MG Oral Tablet amLODIPine Besylate 5 MG O ral Tablet amLODIPine Besylate 5 MG Oral Tablet 08/27/2020 12:00:00 AM EST 1 active amlodipine 5 MG Oral Tablet [facility] (Herman Levy MD [facility]) anastrozole 1 MG Oral Tablet Anastrozole 1 MG Oral Tab let Anastrozole 1 MG Oral Tablet 08/27/2020 12:00:00 AM EST 1 active anastrozole 1 MG Oral Tablet [facility] (Herman Levy MD [facility]) Administration Of Flu Vaccine 06/27/2020 12:00:00 AM EST completed [facility]) Medication administered onsite Emergen-C Immune Plus 06/27/2020 12:00:00 AM EST active [facility] ([facility]) TC-99M medronate (Tc-MDP) [address]-3 03/19/2020 09:45:00 AM EDT Intravenous completed Intravenous, Once, Wed03/19/20 at 0945, For 1 dose, Imaging Protocol [facility] Medication administered onsite anastrozole 1 MG Oral Tablet Anastrozole 1 MG Oral Tab let (ARIMIDEX) Anastrozole 1 MG Oral Tablet (ARIMIDEX) 12/19/2019 12:00:00 AM EDT active TAKE 1 TABLET EVERY DAY [facility] Tobramycin 3 MG/ML Ophthalmic Solution Tobramycin 09/01/2019 12:0 0:00 AM EST active [facility] ([facility]) Amoxicillin 875 MG / Clavulanate 125 MG Oral Tablet Am oxicillin/Clavulanate Potassium 09/01/2019 12:00:00 AM EST ORAL active [facility] ([facility]) 200 ACTUAT Albuterol 0.09 MG/ACTUAT Metered Dose Inhaler [Pr oAir] Proair HFA 07/14/2019 12:00:00 AM EST RESPIRATORY completed [facility] ([facility]) Clonazepam 2 MG Oral Tablet clonazepam (KLONOPIN) 2 MG tablet clonazepam (KLONOPIN) 2 MG tablet 2 mg Oral aborted Take 2 mg by mouth nightly. [facility] Insurance Providers Payer name Policy type / Coverage type Policy ID Covered green party ID Covered green party's relationship to larkin Policy [place] Plan Information AARP HE[employer] CARE OPTIONS [id number] SP [id number] MEDICARE [id number] SP [id number] SELF PAY ONLY [id number] SP [id number] MEDICARE [id number] SP [id number] A Medicare Part B of [place] Other 0 Se lf 0 MEDICARE C [id number] S [id number] AARP O [id number] S [id number] MEDICARE [id number] SP [id number] AARP HEALTH CARE OPTIONS [id number] SP [id number] MEDICARE A [id number] Self [id number] AARP U [id number] Self [id number] HUMANA PPO O [id number] S [id number] MEDICARE [id number] SP [id number] MEDICARE [id number] SP [id number] MEDICARE [id number] SP [id number] A Aarp [facility] Opt Medigap Part B [id number] Self [id number] Medicare Natl Govt Servic Medicare Primary [id number] Self [id number] United Hcare/Multiplan Medigap Part B [id number] Self [id number] MEDICARE A [id number] Self [id number] A MEDICARE C [id number] S [id number] 3 MEDICARE C [id number] S [id number] A A[employer] [facility] Opt Medigap Part B [id number] Self [id number] Medicare Natl Govt Servic Medicare Primary [id number] Self [id number] A[employer] [facility] Care Options Medigap Part B [id number] Self [id number] Medicare Natl Gov't Servi Medicare Primary [id number] Self [id number] [employer] Options Medigap Part B [id number] Self [id number] Medicare Natl Gov't Servi Medicare Primary [id number] Self [id number] [facility] [facility] Opt Medigap Part B [id number] Self [id number] Medicare Natl Govt Servic Medicare Primary [id number] Self [id number] [employer] Options Medigap Part B [id number] Self [id number] Medicare Natl Gov't Servi Medicare Primary [id number] Self [id number] [facility] [facility] Opt Medigap Part B [id number] Self [id number] Medicare Natl Govt Servic Medicare Primary [id number] Self [id number] [employer] Options Medigap Part B [id number] Self [id number] Medicare Natl Gov't Servi Medicare Primary [id number] Self [id number] [facility] [facility] Options Medigap Part B [id number] Self [id number] Medicare Natl Gov't Servi Medicare Primary [id number] Self [id number] AARP U [id number] Self [id number] [facility] Opt Medigap Part B [id number] 11 Self [id number] Medicare Natl Govt Servic Medicare Primary [id number] Self [id number] United Hcare/Multiplan Medigap Part B Self [facility] Opt Medigap Part B Self Medicare Natl Govt Servic Medicare Primary Self AARP O [id number] S [id number] MEDICARE C [id number] S [id number] D MEDICARE -O/P [id number] 18 [id number] AARP HEALTH CARE OPTIONS-O/P [id number] 18 [id number] MEDICARE -O/P [id number] 18 [id number] AARP U [id number] Self [id number] BC/BS Of [place] Medigap Part B Self A[facility] Care Options Medigap Part B Self [place] Primary Self MEDICARE A [id number] Self [id number] D AARP HEALTH CARE OPTIONS [id number] SP [id number] MEDICARE [id number] SP [id number] D MEDICARE OUTPATIENT M [id number] S [id number] AARP O [id number] S [id number] Problems, Conditions, and Diagnoses Code Display Name Description Problem Type Effective Dates Data Source(s) V43.1 Pseudophakia Pseudophakia Problem 09/13/2020 12:00:00 A M EST HANNAH (Herman Levy MD [facility]) 379.21 Vitreous Disorders Degeneration Vitreous Disorders Deg eneration Problem 08/27/2020 12:00:00 AM EST HANNAH (Herman Levy MD [facility]) 375.15 Dry Eye Syndrome Dry Eye Syndrome Problem 08/27/2020 12 :00:00 AM EST HANNAH (Herman Levy MD [facility]) 366.16 Cataract Senile Nuclear Cataract Senile Nuclear Proble m 08/27/2020 12:00:00 AM EST HANNAH (Herman Levy MD [facility]) 366.14 Cataract Senile Posterior Subcapsular Po lar Left Eye 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 Problem 08/27/2020 12:00: 00 AM EST - 09/13/2020 12:00:00 AM EST HANNAH (Herman Levy MD [facility]) follow up follow up Diagnosis 05/17/2020 09:30:56 AM [facility] R93.7 Abnormal findings on diagnos tic imaging of other parts of musculoskeletal system Abnormal findings on diagnostic imaging of other parts of musculoskeletal system Diagnosis 03/15/2020 01:38:00 PM [facility] C50.911 Malignant neoplasm of unspecified site o f right female breast Malignant neoplasm of unspecified site of right female breast Diagnosis 01:38:[address] [facility] M25.552 Pain in left hip Pain in left hip Diagnosis 03/15/2020 01 :38:[address] [facility] telemed telemed Diagnosis 01/19/2020 09:00:27 AM [facility] M25.551 Pain in right hip Pain in right hip Diagnosis 01/03 09:27:[address] [facility] M54.5 Low back pain Low back pain Diagnosis 01/04/2020 09:26:[address] [facility] Z78.0 Asymptomatic menopausal state Asymptomatic menopausal state Diagnosis 01/04/2020 08:04:[address] [facility] Surgeries/Procedures Procedure Description Date Indications Data Source(s) OPH BMTRY PRTL COHER INTRFRMTRY IO LENS PWR RUPAL Ophtha lmic biometry - IOL Master with IOL calculation (RT, 26) 09/13/2020 12:00:00 AM EST GR YASHIRANWAY (Herman Levy MD [facility]) OPH BMTRY PRTL COHER INTRFRMTRY IO LENS PWR RUPAL Ophtha lmic biometry - IOL Master with IOL calculation (Left side, WAIVER OF LIABILITY ON FILE (ABN)) 09/02/2020 12:00:00 AM EST HANNAH (Herman Levy MD [facility]) Intermediate Eye Exam Established Patient (Signi/Sep E sintia. & Man.) Intermediate Eye Exam Established Patient (Signi/Sep Eval. & Man.) 09/02/2020 12:00:00 AM EST HANNAH (Herman Levy MD [facility]) Surgical / procedural history 1965, C-Secti on 1966, Lumpectomy Surgical / procedural history 1965, 1966, Lumpectomy 08/27/2020 12:00:00 AM EST HANNAH (Herman benoit MD [facility]) Medical Eye Exam Medical Eye Exam 08/27/2020 12:00:00 AM EST HANNAH (Herman Levy MD [facility]) BONE &/JOINT IMAGING WHOLE BODY NM BONE SCAN IMAGING WHOLE BODY [id number] FAVIO 03/19/2020 1:25 PM EDT Stage 1 breast cancer, ER+, right Acute bilateral low back pain with sciatica, sciatica laterality unspecified Bilateral hip pain Abnormal MRI 03/19/2020 01:25:48 PM EDT Abnormal MRIB ilateral hip painAcute bilateral low back pain with sciatica, sciatica laterality unspecifiedStage 1 breast cancer, ER+, right [facility] Abnormal MRI Bilateral hip pain Acute bilateral low back pain with sciat ica, sciatica laterality unspecified Stage 1 breast cancer, ER+, right Mammogram 10/11/2019 12:00:00 AM EST Francine HAYWOOD ([facility]) Results ID Date Data Source [id number] 09/18/2020 10:00:00 AM EST [facility] Name Value Range Interpretation Code Description Data Chasity rce(s) Supporting Document(s) SARS coronavirus 2 RNA Not Detected [facility] [place] This lab was ordered by [facility] and reported by [facility]. ID Date Data Source [id number] 09/07/2020 08:30:00 AM EST [facility] Name Value Range Interpretation Code Description Data Chasity rce(s) Supporting Document(s) SARS coronavirus 2 RNA Not Detected [facility] [place] This lab was ordered by [facility] and reported by [facility]. ID Date Data Source [id number] 09/06/2020 01:50:53 PM EST [facility] Name Value Range Interpretation Code Description Data Chasity rce(s) Supporting Document(s) Progress Note [facility] XQWFKy5kSvDERvMa98/YVKnnMBLhs6MrPKcnFGv0QPtoZKJrE7NuLAF5iF7fGPX3ODpEYfTkHcOjTPC0 lbm [file] +dg7m2JyQdIIUa/I3yn6e/maoq/YXjWzN3qSwg++Turner Machine Operator [file] L0MIS5DMV+SA5aPVr+Rf8Rz4RhuhB0axLpUKahTEP2AV9QLVCYG5YRRy== ID Date Data Source [id number] 07/10/2020 12:10:00 PM EST [facility] ([facility]) Name Value Range Interpretation Code Description Data Chasity rce(s) Supporting Document(s) Laboratory test finding (navigational concept) Laboratory test result [facility]) Test: COVID-19 Nasal/Naspharynx Result: NOT DETECTED Reference Units: Not detected Note: Please consider re-collection of a new specimen, if clinically indicated. NOTE: This test has not been FDA cleared or approved. This test has been authorized by FDA under [id number] s004 for use by [facility], located at [address] [place] [address]. [facility] is designated as a high complexity laboratory [...] been individually repeated for confirmation. ASSAY INFORMATION: [facility] ID Date Data Source [id number] 07/10/2020 12:00:00 AM EST [facility] Name Value Range Interpretation Code Description Data Chasity rce(s) Supporting Document(s) 2019-nCoV RNA XXX RICARDO+probe-Imp [facility] This lab was ordered by [facility] and reported by [employer]. 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 Patient has a history of breast cancer as per outside medical records.NOTE: This examination was not performed at our institution. Decisions about the scanning protocols or parameters used, which ultimately affect the quality of this study, were under the control of the outside facility. Furthermore, additional sequences and clinical information may be present at the original institution that are not in our possession. Therefor e, this report is not a substitute for the report issued from the original institution, which should be reviewed in conjunction with this opinion.TECHNIQUE: Multiplanar multisequence MR images of the left hip was obtained with and without intravenous contrast. This examination was interpreted in conjunction with the report from [facility]. COMPARISON: CT lower extremity dated 02/05/2020..FINDINGS:Degenerative changes are present within bilateral hips.There is presence of a T2 hyperintense and T1 hypointense lesion involving the superior lateral aspect of the left femoral head which demo nstrates contrast enhancement on postcontrast imaging. This lesion is not clearly delineated on prior CT from 02/05/2020 however, is likely lucent in nature.There are smaller but similar lesions within the superior and inferior aspect of the acetabulum measuring 0.7 cm and 0.6 cm respectively, which demonstrate T2 hyperintensity and T1 hypointensity and enhancement on postcontrast imaging.Increased edema and enhancement is seen along the soft tissues of the greater trochanter likely a sequelae of inflammation. IMPRESSION:Previously mentioned lesion within the superolateral aspect of the femoral head likely represents an atypical degenerative cyst, and less likely to represent a metastatic lesion but this is not totally excluded. This document has been electronically signed by Markel Santiago MD on 03/26/2020 10:35 AM Name Value Range Interpretation Code Description Data Chasity rce(s) Supporting Document(s) ID Date Data Source [id number] 03/20/2020 07:39:49 AM EDT [facility] Name Value Range Interpretation Code Description Data Chasity rce(s) Supporting Document(s) Progress Note [facility] BGKONf7qOiXCXtYl07/VGQusOTXjz7NmVBxtRMz7JMuzVSAwL9VkWXF0xV6dFAH6YGbUMdFuJkEiVHDn [facility] MmVppPBqOfKORqKriIIaGjNJayNqxfqVPwAA5VtRX4JCRwD27hBAWnKUPgE6VxFYMzFTh+Se5GMFEdeL JdMH6EMcsY4DtfRdgTSF6krj/YIqCzyBEm1r2YMqarsSBQh0DEr0h9f8LoqYR9pVcu5f/bNX8ecatbhj lRGcdj3HwbN1nlDpMfB2S++yD2A8+yLJH/s95ZJst3 Q/ZxK6NbaWSwvz8+vxtCNbjFEpHzkZ736bxoQeDAdGheAwwc7ddV+vP2LbGEAh0le9pCieY9mpV1TPoW OewDhGaqSwUArwS7UfGgqHgH0jSc/RVNCGsWS2u8XdCrmjFxJIxCYRShMHntIqrsHVwWmq5TGPx4D8cH G4DhpwyHXnW6MWiNNvZ37T5n51F3h4kOwkt82ylOp+ N+Awyxe93vkMW8QEGZysHWtjftjOtQS2M6upQR8zC/0qtJUxwJzAxY4fd1HS6Eatj+GFgyHawFWn3UMR q7Fs2+M5Trvb8C3SNBWE5rLsxCE1IZPSb4UR8uLVtAz5pLMzPuvCmN+X4uOI/8JJYx6LFdVuNktTcllw BNnWtNEQLsnZynkniFHNIakBSAFm4eK4aPulRPINVO [file] E+DQogICAgICAgICAgICAgICAgICAgICAgICAgICAg ICAgICAgICAgICAgICAgICAgICAgICAgICAgICAgICAgICAgICAgICAgICAgICAgICAgICAgICAgICAg ICAgICAgICAgICAgDQogICAgICAgICAgICAgICAgICAgICAgICAgICAgICAgICAgICAgICAgICAgICAg ICAgICAgICAgICAgICAgICAgICAgICAgICAgICAgIC AgICAgICAgICAgICAgICAgICAgICAgDQogICAgICAgICAgICAgICAgICAgICAgICAgICAgICAgICAgIC AgICAgICAgICAgICAgICAgICAgICAgICAgICAgICAgICAgICAgICAgICAgICAgICAgICAgICAgICAgIC AgICAgDQogICAgICAgICAgICAgICAgICAgICAgICAg ICAgICAgICAgICAgICAgICAgICAgICAgICAgICAgICAgICAgICAgICAgICAgICAgICAgICAgICAgICAg ICAgICAgICAgICAgICAgDQogICAgICAgICAgICAgICAgICAgICAgICAgICAgICAgICAgICAgICAgICAg ICAgICAgICAgICAgICAgICAgICAgICAgICAgICAgIC AgICAgICAgICAgICAgICAgICAgICAgICAgDQogICAgICAgICAgICAgICAgICAgICAgICAgICAgICAgIC AgICAgICAgICAgICAgICAgICAgICAgICAgICAgICAgICAgICAgICAgICAgICAgICAgICAgICAgICAgIC AgICAgICAgDQogICAgICAgICAgICAgICAgICAgICAg ICAgICAgICAgICAgICAgICAgICAgICAgICAgICAgICAgICAgICAgICAgICAgICAgICAgICAgICAgICAg ICAgICAgICAgICAgICAgICAgDQogICAgICAgICAgICAgICAgICAgICAgICAgICAgICAgICAgICAgICAg ICAgICAgICAgICAgICAgICAgICAgICAgICAgICAgIC AgICAgICAgICAgICAgICAgICAgICAgICAgICAgDQogICAgICAgICAgICAgICAgICAgICAgICAgICAgIC AgICAgICAgICAgICAgICAgICAgICAgICAgICAgICAgICAgICAgICAgICAgICAgICAgICAgICAgICAgIC AgICAgICAgICAgDQogICAgICAgICAgICAgICAgICAg ICAgICAgICAgICAgICAgICAgICAgICAgICAgICAgICAgICAgICAgICAgICAgICAgICAgICAgICAgICAg XLTbYJNhOEReXPTlDEGzSTFwZJJmKEb3P0zoRKSeZZSuEL8jOIh9Se0+TWfKQaNmEAR5ifLgkL9BBD1f t6VnKPqbWHHmm6RpCZw6BA3FMCVaRCxxFF0VOGgsik 2LBIWoZUUwoKNQy3xaVnOzCAI1LXPxReolIN2MQZVgZ5mwskOmFMQqTQBEJW4ECjFzS6LczR90VIAAWv 4+FRsscsUmUanQPxF6ZQIqv3QmETj7VC5TMWLlFseoc7NtTwWkJAJWFXxvOD2ZUCO4GXRaXMXyNs4GDF WvU170faJjQV6OZc2ZKgGfSF0tft1PWnGdCCZkLvrG Ovd0ZCjfIO0MzOCeNSiNel4fciSdxaCMk2FcmnQmbVQHSAAkvKDuYYGXKMV4lhZmnjxzFqSeNNJtMG3p Eu5kUJOnOCS1DbA8AXIZUG1XRBRgEPWbaPPiKYWxGVLJYQ9XBKhsHXW0UGPahhBgqFGtQHdnFA5NKHZk bnQgMTkgMCBSDQo+Tu5FDE1pr1ToOOluRUXbBD2vhs 1QOXrSVgQkC6A1qLNzI2R8HBloBu6JJFMeYUKpOPrsDOOZVYegST6DQK2pnxQ5AK7AiIEdWHCoKIPrqA RuBHp3X37xsZAvLXseXD7MJCM+Minnie+Vt7WZXRbDHIpOXUaXrUkGXIYYuUzX8HzS9FFp7UzW8UqAC41rC akpyGhXZqvQV2NOV6zWNXtPCOWOI8PoKYfmG2ngzEd FZThGLNJLkFjF48goNUbHQZkRKI0JOKnMx1XMCGnP2TrmzQmmKruzkArQLFvIBCZHN2FNQqkqsCohXQw oWdfTF38fUnfKK0JIf0KEuWvHQ4wrn3QdWRaRl3VNZVtSc8TLFBvBDWzHSZbVJP6XWUxZfAePUjvAMFt TUCuFFL6GBXbAMQvOC5QGvNxQSZfSBs8PNzyKPLhAE Ncgt3GTEQwYIUgJYEsQqIwFBLoRUJvZUbdKSWyZTJjIQC9RRDqWFTnOR2SWzQuVNIoHPY9JeHsBAHdOA Ndme2OHAXdXMDtUobhNPJdXTGfDJDmQUnyPQTsKJWzByo0XRAaYAToQV6ZEpOsXKNyGAB6SODvIOVfVG Dnqv2HASZtBKAnNNY8MNRxSUErRYAyQLivNBHiTKK9 MVHuSDSmHAWwNB1UFiAwOACoKLWzBpRgYQThBYMovg9QCHPlQSTdYMVfEOFpJFJiDHEwZLvwFUNmJDR1 CJM7AAFzUUQkVU3FPuHyKVGdAUxnXPQuTHOpSMTfat0AFVSqRFEfDtE2JQCnEUGgUCYeKXacMNHiYHJ2 WgNhMPByMELiBI0XFmGgZNRkJYw0BpxkYUWmKSPqgi 9IDSYrHFSwXRJ6JgCiQCDyYKOjDPxoAPEaVWT4FmI0ZSVkUCDrTZ2OXwAjPMQhFMh1FNKiGGLkEJTith 9ZWDVrMAWcMKyaMRKzXCUiQKVsQXa7kaQrmCWmRNn8YN5KN0IgzuCwLyUUKb9Ps648TYKpZWTyQh4ZG3 mlUv6aDIBcXRWMUy7TBZf4UlvdYqFsQjDvUYGrQOBj HwB6GlSqCJVnCNI4XTUiOkf+ZYjvFAS8LjZcJVT8ICZ3JeQuDOX4YLMnK2HfEVhaXDMkEv8uQXQVVo0+ KTdeaASrhNzrXNKEDaYyNOkzCLhwMUAEHk3U ID Date Data Source [id number] 03/19/2020 05:03:58 PM EDT [facility] NM BONE SCAN IMAGING WHOLE BODY [id number] AL RESULTInterpreted by:Jose Fermin MBBSINDICATION: 74-year-old female with history of breast cancer in 2012 with history of right lumpectomy in 2012, status post brachytherapy.TECHNIQUE: Two hours following the intravenous injection of 26.8 mCi of Tc-99m labeled MDP, whole body and selected static images of the skeleton were obtained. FINDINGS: Foci of increased radiotracer uptake involving the right fourth, fifth and sixth ribs in a contiguous distribution and may be the sequelae of prior trauma. Clinical correlation is recommended. Curvature of the thoracolumbar spine as well as degenerative changes are noted over both shoulders, wrists, knees, ankles as well as sacroiliac joints Expected skeletal and soft tissue radiopharmaceutical activity is identified. In particular, no focal areas of increased activity are seen to suggest osteoblastic metastasis.IMPRESSION: 1. Foci of increased radiotracer uptake seen along the anterior right fourth, fifth and sixth ribs, likely representing the sequelae of prior trauma. Clinical correlation is recommended.2. Otherwise no abnormal radiotracer activity to suggest osteoblastic metastatic disease.3. Degenerative changes are noted over bilateral shoulder joints, wrists, knees, ankles as well as sacroiliac joints.This document has been electronically signed by Herman Thurston MD on 03/19/2020 5:01 PM Name Value Range Interpretation Code Description Data Chasity rce(s) Supporting Document(s) ID Date Data Source [id number] 03/15/2020 02:40:17 PM T [facility] Name Value Range Interpretation Code Description Data Chasity rce(s) Supporting Document(s) Progress Note [facility] ULTCQa1xWrESZpRv53/GKYttGXWme7ShUBlxCWd6HNypWLRzX9GbVFQ6kB4sSEE4VVbDQhYvCjEkRIA8 lbm [file] ICAgICAgICAgICAgICAgICAgICAgICAgICAgICAgICAgICAgICAgICAgICAgICAgICAgICAgICAgICAg SAZwVSGuCNFfZGMsDKNsMROzJJBaEAVwCRBzMWWsYXUsNT6CXSQnCNFzCROjQMOqIRJkRLZwSINfZRUl ICAgICAgICAgICAgICAgICAgICAgICAgICAgICAgIC UzBYVzVZHvWCSuGZWgUHDgIXUrTIOeLPPwIKTrWUDrBBLhDAWdIJIgRIZgDO5SDXMeNQOfKWPhWAKiSV AgICAgICAgICAgICAgICAgICAgICAgICAgICAgICAgICAgICAgICAgICAgICAgICAgICAgICAgICAgIC ZuWZDuMNMkGWWcKXExYFPqVLYvTESuYRFpRE0TPPTw ICAgICAgICAgICAgICAgICAgICAgICAgICAgICAgICAgICAgICAgICAgICAgICAgICAgICAgICAgICAg CQHdZVTvLUKrGRBkDZUzOJBpJNDjYDQnEQShJAIdKLCbEAUxJM9EIADfRGVvHBZtUTDzLQVbKEXeOYWg ICAgICAgICAgICAgICAgICAgICAgICAgICAgICAgIC WwHUFfWHVyZNDyMPDuHQTbAOPdEUKkKIPrFOPoOXWcTTKtFXJlHDBtDJOwKQIwUN1TUMAoKWJwYNDdGW AgICAgICAgICAgICAgICAgICAgICAgICAgICAgICAgICAgICAgICAgICAgICAgICAgICAgICAgICAgIC QbWGIoPCVhHFApCTOaOHWrSIQdFNRfNYIuZQYaOA6P ICAgICAgICAgICAgICAgICAgICAgICAgICAgICAgICAgICAgICAgICAgICAgICAgICAgICAgICAgICAg LEHuZRMvQYEjFZAjRKFcCJAzKEUtHXZzVRMmCCHfVJPgTUFuFRIwTY3SZVEfHBLqINDaSSUxPPPxRRBd ICAgICAgICAgICAgICAgICAgICAgICAgICAgICAgIC GqPWOoOKMlMOIcSWVbDYGiTLHfJPKbFFDwOXPaZMQtULKtTRVaOFTpHEWmWKVkVEYgDM9HRYOgKGRtFP AgICAgICAgICAgICAgICAgICAgICAgICAgICAgICAgICAgICAgICAgICAgICAgICAgICAgICAgICAgIC AgICAgICAgICAgICAgICAgICAgICAgICAgICAgICAg WP5UIABsADJvSTJnGSFsLMTiYTLeYTZvFCKpGTCsREDqMEOcHDOxJQQcJBLwDBMbDZYnSXMiMWHlESTf VBBuXNGgXUCaJUVbOKJrWFPvVBErBYZnJFPyYVIdZPMsHYTyFHMgYOVfOL6BXQ69nEWnn8N1TSWfQY6m dyc/Py7KLByrsjJmjYVxIQ6CJxAcYI5skd0ARgIjEW 7rpy0GXNmOTzUrC9N9wYAaPUKxAQQJSoUmJ45uGOllGv54VVovBLUmAuXxQKg6Si3SWmLqY9cqZLPsKb H5SVLzTuNvOMbqEX8Gq5WocIQnUKh+Ur3TXP5rq5ZmNVwjYJEqFC9pbk5IRRdHYuElY3ZmtwE0LNRdUM IbTz5ZCRXkVWJgmHZvJZZcPSSFVrUkD0UwrB40JZZR Cj4+DSkwlkQmEieJWuUaOKZjs8CrDRi3BY1KBGJxPFj0jYQlIGXnB5Dvt4FbYf97RESpRrhjIBS7cqde iBLgGiLVyNZ5mY5kAR8ZFRV9IDkiYf8jCSPyQLMmEkI8QIFQVO0WMAYpWJTrrVAwJTGsKDICVR5DEUka YFE1KKOqozDymMZgBVvoVV0JOWHvyxDmIOxaZPUDOB o+Yu1LDZ2nr5ImDSydTYZwRA1aay1JQVhFVoDbN8V8eAJzW8M6XBzrPf2ZSCVqGZQvJEveGYJHIAqzSQ 6OVF2fajA7UM1WwFMnDIFpGDOzcOFbINs1S35aoXUiANmtDS2YTVB+Minnie+Rt4GKGVhHEUvDHJjXbYlID XEOlXkH2ShG6LGq0BiJ8JyBQ67eFchoePcMFxdUD3E UL7bDOSdPKIFYA1NdTSfgK5hkxWcMGPmPVUKRwJoL28xzXTlVCFtGLG9MFWaTc0LIXEzW3XjxlGbkYdt zxHfIFBoGLANNY2SRXjnaeFatEKknHfvHN53cBxrPF4EEb3XXsKeEA6uyi2UpTQtWd0WGYClZo8CFVIs MKOaFWFdJCT7XLSrZzYaBWaeIYMlVIAhSAD5LMDnOA EoZK6DKcXaZZZdCUrfTEMvUEFmIVAvll1ODSRvYZLeZIibAaKgOHCdPSImWAvdUMPmBQOgHFQ1IREhDK NsVD0KGuNhWRFnTDHsGXZbBPGgHZWjev6CHKMpZKOjFaI1XCUhFYLvEAWbEVbrNOHtFPKmRaQ8CRVvFA RiPH2QClOeDITyEPP0PSScMLTcLMVxgj4OWYApMGRp SsQ2KQFwBJYoVTLxEIxbMQLnQEK9SDM1FVCgLHXzRK0FPgJcCYWuXBL5HKFbEXTjEBAcyp7TNKNkXPBr JFclEmWbDIHgCCHmVSjjCZTkSOK1EvumOSNpFWEeCN6QIsBsIXRbXYP9KXfgBPOtEJKbwa8PYIIiGAUx DdxpCvBpWVMoWAVfKBudCSOuQBH4UGQ0YNIhYTCgJH 7WAgHeOHRpSKsbTIXbLYQlZXFhwg1WOPYsDGAzOmC7YpTsVZIbTQOaMNlgXBQhEDB3BADkHATrDYLrXA 1KAzSuDDLgPGhhGLFnXLYkFXVyrf9RDAVfDENyBNT5AzKbOHBjZSCaCRh3cxWafTDoDZn2SJ1FR6Ehah ThPhTCRn8Na588NDQxROMdMl7JJ5tiPx2wXFKtFZEF Si8YOPi2JgZ2BNLiJtT6FnRoVaTaVDr9KSPjOog4Mbz4Z9SySHJ+HQupZCG8SnMsUYclN6DxKWToUHv0 BMRkRVnkNvu2DVA9MR7wEWQLVb3+OQctsYAurUzeJDEIApO4PYq9GCeuOEFIGd9G ID Date Data Source [id number] 03/08/2020 12:07:51 PM EDT [facility] Hospital Name Value Range Interpretation Code Description Data Chasity rce(s) Supporting Document(s) Progress Note [facility] KAHQEw5iDcCUFgEn81/KQYvtCRPsh6JgHGaaQEx0ZEknATZmO3GxZKD5gH6vVBP2JCeCTyBiXkZyPkVe lbm [file] CmOiTVP5EpEqNN8YFo0XWwN4ERP4qAZbXq5UWLz4GdKYVkBpMW8CEFq= ID Date Data Source [id number] 03/07/2020 01:11:08 PM EDT [facility] Hospital Name Value Range Interpretation Code Description Data Chasity rce(s) Supporting Document(s) Progress Note [facility] QSKGZc0aInRTUqIc91/ECBypJXGpk9RsRPocGZy8PUjpAOJnA3ZkXAV5bZ1jVJD6ECrYIzBeRiLjKoOm lbm [file] CdKk4WORsqPcOVTsVqPA0FRCg= ID Date Data Source [id number] 02/29/2020 12:00:00 AM EDT [facility] Zuri Gonzalez, Gwendolyn Patient Name: BEVERLY BIRD [facility] Date of : 1945SyraRAFFI [place] [address] Date of Exam: 02/29/2020PH#: Fax: [phone] EXAM: MRI HIP LEFT WITHOUT & WITH CONTRASTCLINICAL INFORMATION: Assess for enhancing lesion, possibly metastatic.Patient states she fell a few months ago.Pre and post contrast 3T MRI of the left hip was performed utilizingvarious sequences. Gadolinium utilized: 22 cc of ProHance.There are no prior left hip MRI's for comparison. Previous CT of the lefthip 02/05/2020 was reviewed.Large qvhis-ti-chje imaging shows asymmetric bilateral hip joint spacenarrowing and osteophytosis. There is T2 hypersignal in the trochanterictendinobursal region of each hip. There is no joint effusion.Degenerative changes are seen involving the sacroiliac joints. The signaland morphology throughout the remainder of the imaged musculature is withinnormal limits. There is no evidence of a mass or mass effect.There is a 1 cm sized focus of T1 and T2 prolongation with enhancementinvolving the superolateral left femoral head. This region is subjacent toa marginal osteophyte. There is no abnormal edema or enhancement seeninvolving either the greater or lesser trochanter of the left femur.IMPRESSION:1. Focal enhancement in the left femoral head. Whether this represents ametastatic focus or is secondary to an area of remodeling secondary totrauma cannot be stated with certainty. Since there is nearbyosteophytosis and other forms of degenerative change as described above,this further obfuscates the issue. There is a similar subchondral focalarea of edema and enhancement involving the acetabular root. I have notbeen given any history of previous carcinoma. This area would need to befollowed closely with consideration made for whole body imaging with bonescintigraphy if clinically relevant.2. There is mild bilateral trochanteric tendinobursitis.3. Bilateral hip degenerative changes as described above.Accredited by the [employer] in [place].Marisa Jenkins, SCOTT/Nita navarro for referring TAYLER BIRD to our office. Electronically Signed - MARISA JENKINS DO 02/29/20 16:31 Name Value Range Interpretation Code Description Data Chasity rce(s) Supporting Document(s) ID Date Data Source [id number] 02/20/2020 09:52:00 AM EDT [facility] ([facility]) Name Value Range Interpretation Code Description Data Chasity rce(s) Supporting Document(s) Laboratory test finding (navigational concept) 54.2 % [facility] ([facility]) Urine Total Protein 17.3 mg/dL [facility] ([facility]) Laboratory test finding (navigational concept) 18.3 % [facility] ([facility]) Laboratory test finding (navigational concept) 8.6 % [facility] ([facility]) Laboratory test finding (navigational concept) 0.6 % [facility] ([facility]) Laboratory test finding (navigational concept) Laboratory test result [facility] ([facility]) Laboratory test finding (navigational concept) 18.4 % [facility] ([facility]) Laboratory test finding (navigational concept) Laboratory test result [facility] ([facility]) . Protein electrophoresis scan will follow via computer, mail, or textile machinery instructor delivery. Performed at: RN - [facility] [address] [id number] Head Sugar Reprocess Operator: Gena Cordova MD, Phone: [phone] ID Date Data Source [id number] 02/19/2020 07:32:00 AM EDT [facility] ([facility]) Name Value Range Interpretation Code Description Data Chasity rce(s) Supporting Document(s) Haxyy-6-Ripsgyfe % 3.4 % 2.9-4.9 [facility] ([facility]) Albumin % 55.4 % 55.8-66.1 [facility] [facility] Nepn-2-Dkmxewdfq % 7.3 % 3.2-6.5 [facility] ([facility]) Fpbvk-6-Phqqdfpnm % 12.7 % 7.1-11.8 [facility] ([facility]) Cxby-9-Nozceeyat % 7.2 % 4.7-7.2 [facility] ([facility]) Gamma Globulin % 14.0 % 11.1-18.8 [facility] ([facility]) Albumin 4.38 GM/DL 3.29-5.55 [facility] ([facility]) Xoxsc-3-Qpwcbpumj 0.27 GM/DL 0.17-0.41 [facility] ([facility]) Avwn-5-Cajqorygm 0.58 GM/DL 0.19-0.55 [facility]) Gyzl-2-Xfdtevyds 0.57 GM/DL 0.28-0.60 [facility] Reqxj-0-Edhwyuyzm 1.00 GM/DL 0.42-0.99 [facility] Total Protein 7.9 GM/DL 6.4-8.2 [facility] ([facility]) Gamma Globulins 1.11 GM/DL 0.65-1.58 [facility] ([facility]) Spep Interpretation For RFX Laboratory test result [facility] ([facility]) NO M-SPIKE(S)NOTED. Laboratory test finding (navigational concept) Laboratory test result [facility] ([facility]) REV'D BY O ADJAPONG ID Date Data Source [id number] 02/19/2020 07:32:00 AM EDT [facility] ([facility]) Name Value Range Interpretation Code Description Data Chasity rce(s) Supporting Document(s) Urine Color Laboratory test result [facility] ([facility]) Urine PH 5.0 units 5.0-9.0 [facility]) Urine Appearance Laboratory test result [facility] ([facility]) Urine Leukocytes Laboratory test result Abnormal (applies to non-numeric results) [facility] ([facility]) Urine Blood Laboratory test result [facility] ([facility]) Specific gravity of Urine 1.025 1.005-1.030 [facility] ([facility]) Urine Protein Laboratory test result 0-0 [facility] ([facility]) Glucose [Presence] in Urine Laboratory test result [facility] ([facility]) Urine Nitrite Laboratory test result [facility] ([facility]) Urine Urobilinogen 0.2 mg/dL 0.2-1.0 [facility] ([facility]) Bilirubin.total [Mass/volume] in Serum or Plasma Laboratory test resu lt [facility] ([facility]) Urine Ketone Laboratory test result [facility] ([facility]) ID Date Data Source [id number] 02/19/2020 07:32:00 AM EDT [facility] ([facility]) Name Value Range Interpretation Code Description Data Chasity rce(s) Supporting Document(s) Cholesterol [Mass/volume] in Serum or Plasma 194 mg/dL 131-200 [facility] ([facility]) Triglyceride [Mass/volume] in Serum or Plasma 187 mg/dL 30-150 [facility] Cholesterol in HDL [Mass/volume] in Serum or Plasma 52 mg/dL 35-60 [facility] Cholesterol in LDL [Mass/volume] in Serum or Plasma by calcu lation 105 CALC 50-159 [facility]) ID Date Data Source [id number] 02/19/2020 07:32:00 AM EDT [facility] Name Value Range Interpretation Code Description Data Chasity rce(s) Supporting Document(s) Urea nitrogen [Mass/volume] in Serum or Plasma 13 mg/dL 7-18 [facility] ([facility]) Glucose [Mass/volume] in Serum or Plasma 115 mg/dL 74-99 [facility] ([facility]) 100-125 mg/dL PRE-DIABETES/FASTING >126 mg/dL DIABETES/FASTING Creatinine 0.9 mg/dL 0.6-1.3 [facility]) Chloride [Moles/volume] in Serum or Plasma 100 meq/L 98-107 [facility] ([facility]) Potassium [Moles/volume] in Serum or Plasma 4.5 meq/L 3.5-5.1 [facility] ([facility]) Sodium [Moles/volume] in Serum or Plasma 137 meq/L 136-145 [facility] ([facility]) Carbon dioxide, total [Moles/volume] in Serum or Plasma 25 meq/L 21 -32 [facility] ([facility]) Alkaline phosphatase isoenzyme [Units/volume] in Serum or Pl asma 124 mg/dL 46-116 [facility] ([facility]) Calcium [Mass/volume] in Serum or Plasma 9.5 mg/dL 8.5-10.1 [facility] ([facility]) Total Bilirubin 0.6 mg/dL 0.2-1.0 [facility] ([facility]) Albumin [Mass/volume] in Serum or Plasma 4.0 g/dL 3.4-5.0 [facility] ([facility]) Aspartate aminotransferase [Enzymatic activity/volume] in Serum or Plasma 24 U/L 15-37 [facility] ([facility] ) Alanine aminotransferase [Enzymatic activity/volume] in Seru m or Plasma 37 U/L 12-78 [facility] ([facility]) A/G Ratio 1.05 CALC 1.00-1.90 [facility] ([place] [facility]) Proteinase 3 Ab [Units/volume] in Serum 7.8 g/dL 6.4-8.2 [facility] ([facility]) Glomerular filtration rate/1.73 sq M pre dicted among non-blacks [Volume Rate/Area] in Serum or Plasma by Creatinine-based formula (MDRD) Laboratory test result [facility] ([facility] ) Glomerular filtration rate/1.73 sq M pre dicted among blacks [Volume Rate/Area] in Serum or Plasma by Creatinine-based formula (MDRD) Laboratory test result [facility] ([facility]) <content>CHRONIC KIDNEY DISEASE STAGING PER NKF</content>
<content></content>
<content>STAGE I & II GFR >= 60 NORMAL TO MILDLY DECREASED</content>
<content>STAGE III GFR 30-59 MODERATELY DECREASED</content>
<content>STAGE IV GFR 15-29 SEVERELY DECREASED</content>
<content>STAGE V GFR <15 VERY LITTLE GFR LEFT</content>
<content>ESRD GFR <15 ON MANAGER ORACLE RETAIL</content>
<content></content> ID Date Data Source [id number] 02/19/2020 07:32:00 AM EDT [facility] ([facility]) Name Value Range Interpretation Code Description Data Chasity rce(s) Supporting Document(s) Erythrocytes [#/volume] in Blood by Automated count 4.63 x10*6/UL 4.2 0-6.30 [facility] ([facility]) Leukocytes [#/volume] in Blood by Automated count 8.5 x10*3/UL 4.1-10 .9 [facility] ([facility]) Hemoglobin [Mass/volume] in Blood 14.1 g/dL 12.0-18.0 [facility] ([facility]) MCV 88.5 fL 80.0-97.0 [facility] ([place] [facility] MCH 30.5 pg 26.0-32.0 [facility] ([place] [facility]) Hematocrit [Volume Fraction] of Blood by Automated count 41.0 % 3 7.0-51.0 [facility] ([facility]) Erythrocyte distribution width [Ratio] by Automated count 12.6 % 11.6-13.7 [facility] ([facility]) MCHC 34.4 g/dL 31.0-38.0 [facility] ([place] [facility]) Platelets [#/volume] in Blood by Automated count 326 x10*3/UL 140-440 [facility] ([facility]) MPV 8.3 FL 7.8-11.0 [facility] [facility] Mid % 6.9 % 1.7-9.3 [facility] [facility] Neut % 58.9 % 37.0-92.0 [facility] [facility] Lymph % 34.2 % 10.0-58.5 [facility] [facility] Mid # 0.6 x10*3/UL 0.1-0.6 [facility] ([facility]) Lymph # 2.9 x10*3/UL 0.6-4.1 [facility] ([facility]) Neut # 5.0 x10*3/UL 2.0-7.8 [facility] ([facility]) ID Date Data Source [id number] 02/08/2020 02:18:04 PM EDT [facility] Name Value Range Interpretation Code Description Data Chasity rce(s) Supporting Document(s) Progress Note [facility] GYETIw7mJbJUWiRv95/ZKHcsAHLlh6WeUSyjCSo4ICeyDHAfP9ZrEEN0kR4mQWJ5ZZxFIoWqXwMdUqCb lbm [file] AgICAgICAgICAgICAgICAgICAgICAgICAgICAgICAg BMTfJEUgBSSsSBKqOTBxNRGtVZJuZBEjTGWeYRMtGMPmWC8FMKYeQMSwHPCrBRGuIDArJRTsHRNfQDFt ICAgICAgICAgICAgICAgICAgICAgICAgICAgICAgICAgICAgICAgICAgICAgICAgICAgICAgICAgICAg KYLtQFRwERWgDUClQSAqGK6ADEQeFYYsMOZeDAOqIJ AgICAgICAgICAgICAgICAgICAgICAgICAgICAgICAgICAgICAgICAgICAgICAgICAgICAgICAgICAgIC GwUZXfACNyAIOiYQDqOEAfTAXsSTYyZXTfQZ1WHTDqUQFtWOZvBNFxGYQwUGTuURYeYMPxDACiMRZfMN AgICAgICAgICAgICAgICAgICAgICAgICAgICAgICAg UBMxHASpVIOfHUXcDTIxPQGsOIDtFSQtCRZnNEViPDImKUCaFX3TMCNtVLEsNMQvCGSxILWwUBWxFQOn ICAgICAgICAgICAgICAgICAgICAgICAgICAgICAgICAgICAgICAgICAgICAgICAgICAgICAgICAgICAg JIHzLGCpNKLrYELcDFZvAYEaIH0QJPMyEHQnTECfWH AgICAgICAgICAgICAgICAgICAgICAgICAgICAgICAgICAgICAgICAgICAgICAgICAgICAgICAgICAgIC PzVZZwYGGgCFHjAKFbZZKcJGDgPEZlXXEmQZTnDM2FIJFyMPXqXEVfGPAbTKWbPWSbZOZvENKfARToBL AgICAgICAgICAgICAgICAgICAgICAgICAgICAgICAg BDGnVHIhPCAqDXIhRYImYZVaRRRsRTNhSTIlLHTsAKGzETFjBIQfOS2ADYUhMNJzDMKsMHEiRBDdCZZi ICAgICAgICAgICAgICAgICAgICAgICAgICAgICAgICAgICAgICAgICAgICAgICAgICAgICAgICAgICAg TOEsYQOgXWRgNTXcYWUsKRLeLEUdPF0BZLBvUJBrHI AgICAgICAgICAgICAgICAgICAgICAgICAgICAgICAgICAgICAgICAgICAgICAgICAgICAgICAgICAgIC SdBIIzQWLiGDLzLKFaVMItOERlQOWpNSYsENTlQUZyEO5TQMQzCCReSPVdFDLyVRNyZEPfBXWxHCEbYY AgICAgICAgICAgICAgICAgICAgICAgICAgICAgICAg CCShMUHgVGZnPIBtHLXbHBQkLAVbSEZmZSKnUSRtLQKwYZNsHHImKZWeDA5ENQ71qIUsk8K0TOFiWN9l dyc/Wz6KQYnzieUnqJPoEF1ICvNqVQ5xdx5DClEeCI2bti3GNXgRWeJgJ9R2rFJnCNDfLPLBLfAlF06g AIfqHy04RBrsPRVmLyAsHZx4Yo1DAdVgX8jcUZTsXd W0BQQgTqClEJnhQW4Ci6RyrGPxIXb+Rk9HRS3xi5KdUGgmBAYlAI1vqz6OGTzHMqMsY2OnbaU7UTPuPJ OtHj4AOHEmXZSzdEUbYVBdFERZXuJnY9AjzG33GFCTKh0+VQbmguYbYiePFgUvWDVso6JuBXd0KS0SEG JxYNy9vULmGRZzC5Hch4RiIm00IGVnJnzbIHP6qwwi mWIoYoZGzLQ9bS0nVK1PTBG2QNgsZz3uZJTaKOAsUnG9YMIKAG7RALRfMLYizQQfUTFfHQXNKD7TCLgs AEX8NARrrlNjmGAmKLtuPW1IVRSbzkUpJEkjBGDSDPy+Kd5XFV2jc3WwVEsuBEUaXQ7pxl3MYXvFDhJy R4G2gLLzJ3P9YRjlAg4BWYYpYGZrDCwcIKZXJUavSI 8RZT0himS6GN6SzTHcBOQaKCZbcCZgDMo6E66xwLXsYKquCY1WUMA+Minnie+Ua6YIRIxONZnMNGoYyEdQN IQMcEcS7BwC1SXx9FpH7CdXQ62dJjrdxOiPJakNP6WMD8rAZIlCYSJFD2PyNKcxR0occIbKTVdTEHQUa JpS89ppFQaBRVxFNN5ZVLbDi9CIMFqM8NcjlRwiDum zvWnSVXlEXVQJT0LFUsrgkZbkTQtmLncVL03fBniCX1CQc1PBfLnHE3qnk0KeFKuEy6IVZCyGq7WYDId NRFzXOMbMBI8LWCgWbTqJGfrKBOvSREqCIJ5NWLzKDDwNM6VVrRyEJQeRFi4JAccPCVyRZUvlk3GCSUy IVUvSAS6QmVuRISxWUDxEPctLFSmUBYqGHA5DRLvJT IvWQ5EAsKiLQOrTLRwRMWiWCMjSHCsoi0SZJQoGZPnYpH2ALSdXVIuXBKkTYgvARPjOVWrHGX0XWRtVB QrSY7WAoPoDXWnZGP0AROjPPPqLMYscu7WRKGaUNPsQdkdGsLtBMQfZTIoREfrXDXqLHJ0QpjePKBuUH SnSJ5ZZjEwZPEnFNC4VRKcBIGuNVUgzm7WAPFoFMZa OUV8VVTxWNKtTWQmUYjcTLInQNY7IBA6URUjQBZcDQ1DEpQwWBIaXZL4KSXeRSLnKDKgvp7OEDJjFTGh QpW9NGWwPPZfVRWmARlsPIUjGIG7UhseJJSbDWGhCL3ECeRjBMCiUTr5LqBzNHNwBDWzyj0HOMHjAMJh SymvFuZvAHAjBKIgVQzwDUOpLGD4Clo4DZXgOJKmNZ 3YWvUcHFAmSCnuWLJfCSOxGQFxqg8OWEUqTYYxMTI0ZnJtILAaZXBcFIq5frHccCMvIAv1WQ9XO5Tkvl CfPlVVGx4Ec389TLXjQETqDg6QS5nlGi4wUWNkRDCISg3GGCk5QQNoJ7WzTZZ2J2G6BnC8MreuOIplN9 XlLYWqLpA9CgS+FBonPQAsBWI2SBLyQPpaMdirQ2W3 H2UhCEF5WtX8BusfXL2jWMBBLi1+SIspvVRmfSswRRZVMbY9JfEeAGdmZLHPLv9S ID Date Data Source [id number] 02/05/2020 12:00:00 AM EDT [facility] Z[facility] Gonzalez Np Patient Name: TAYLER BIRD75[facility] Date of : 1945[place] [id number] Date of Exam: 02/05/2020PH#: Fax: [phone] EXAM: CT LOWER EXTREMITY W/O CONTRASTCLINICAL INFORMATION: Left hip. Chronic back pain. Left hip pain whichhas improved recently. Prior history of breast cancer. Recent xray showedimpaction vs. rim osteophyte on the left hip. CT to further evaluate.Comparison pelvis and bilateral hip xrays 01/08/2020, abdomen xray 04/07/2019,CT abdomen and pelvis 01/03/2008.Low dose 64 slice helical scanning through the left hip was obtained using2 mm increments and reconstructed in both coronal and sagittal planes. 3Dreconstructions were also obtained. Post processing was performed at [facility] work[facility].Only left hemipelvis included in this lwofg-ym-wtyu from the iliac winginferiorly through the proximal femoral shaft. Symphysis pubis is includedin the mjhoi-lb-gxav.The pubic rami are without fracture or focal lesion. Symphysis pubis showssome mild degenerative changes without fracture or destructive lesion. Rimosteophytes at the acetabular roof and femoral head are noted. The femoralrim osteophyte is greatest at the superior margin of the femoral head andposteriorly. There is eiax-oe-bigg appearance of the posterior aspect ofthe hip joint on the axial images indicating chondromalacia. There aresubchondral cystic changes representing geodes and degenerative disease.The superior hip joint space is only minimally narrowed indicating minimalchondromalacia there (non-weightbearing study). I do not see fracture ofthe anterior or posterior columns of the acetabulum or the acetabular roof. I cannot confirm any acute fracture of the hip. There is no definite hipjoint effusion or trochanteric bursal fluid collection. Spurring at theposterior/superior aspect of the greater trochanter noted at tendoninsertions. The lesser trochanter shows some lucency and slight thinningof cortex with some cortical irregularity posteriorly as seen on the axialimages and sagittal reconstructions. I cannot confirm a definite fractureor hematoma in this region.The inguinal region shows no mass, pathologic adenopathy or hernia. Thehip musculature showed no definite mass or hematoma.IMPRESSION:1. Subtle lucency of the lesser trochanter with some cortical thinning andquestionable cortical irregularity posteriorly. I could not exclude adestructive lesion here although there is no extra cortical calcificationor soft tissue mass. No definite fracture at this location ordisplacement.2. Some spurring superior margin of the greater trochanter that mayreflect tendinous insertion.3. Some joint space narrowing posteriorly, minimally superiorlyrepresenting chondromalacia of the left hip with yhfp-zh-ybvn appearanceand some subchondral cystic changes seen. No definite displaced orimpacted fracture of the left hip on the bone window studies.Demineralization is noted anteriorly, posterior, and elsewhere suggestingextensive degenerative change.4. For any heightened any clinical concern for metastatic disease,consider MRI with enhancement if she is a candidate for that type of study.Accredited by the [employer] in [place].Jonathan La, RODOLFO/Nita you for referring TAYLER BIRD to our office. Electronically Signed - JONATHAN LA MD 02/05/20 15:15 Name Value Range Interpretation Code Description Data Chasity rce(s) Supporting Document(s) ID Date Data Source [id number] 01/25/2020 07:57:00 AM EDT [facility] ([facility]) Name Value Range Interpretation Code Description Data Chasity rce(s) Supporting Document(s) Glucose [Mass/volume] in Serum or Plasma 107 mg/dL 74-99 [facility] 100-125 mg/dL PRE-DIABETES/FASTING >126 mg/dL DIABETES/FASTING Urea nitrogen [Mass/volume] in Serum or Plasma 15 mg/dL 7-18 [facility] ([facility]) Potassium [Moles/volume] in Serum or Plasma 4.6 meq/L 3.5-5.1 [facility] ([facility]) Sodium [Moles/volume] in Serum or Plasma 139 meq/L 136-145 [facility] ([facility]) Creatinine 0.9 mg/dL 0.6-1.3 [facility] ([facility]) Chloride [Moles/volume] in Serum or Plasma 101 meq/L 98-107 [facility] ([facility]) Alkaline phosphatase isoenzyme [Units/volume] in Serum or Pl asma 124 mg/dL 46-116 [facility] ([facility]) Calcium [Mass/volume] in Serum or Plasma 9.2 mg/dL 8.5-10.1 [facility] ([facility]) Carbon dioxide, total [Moles/volume] in Serum or Plasma 25 meq/L 21 -32 [facility] ([facility]) Aspartate aminotransferase [Enzymatic activity/volume] in Serum or Plasma 18 U/L 15-37 [facility] ([facility] ) Total Bilirubin 0.6 mg/dL 0.2-1.0 [facility] ([facility]) Alanine aminotransferase [Enzymatic activity/volume] in Seru m or Plasma 26 U/L 12-78 [facility] ([facility]) A/G Ratio 0.97 CALC 1.00-1.90 [facility] [facility] Proteinase 3 Ab [Units/volume] in Serum 7.7 g/dL 6.4-8.2 [facility] ([facility]) Albumin [Mass/volume] in Serum or Plasma 3.8 g/dL 3.4-5.0 [facility] ([facility]) Glomerular filtration rate/1.73 sq M pre dicted among blacks [Volume Rate/Area] in Serum or Plasma by Creatinine-based formula (MDRD) Laboratory test result [facility] [facility] <content>CHRONIC KIDNEY DISEASE STAGING PER NKF</content>
<content></content>
<content>STAGE I & II GFR >= 60 NORMAL TO MILDLY DECREASED</content>
<content>STAGE III GFR 30-59 MODERATELY DECREASED</content>
<content>STAGE IV GFR 15-29 SEVERELY DECREASED</content>
<content>STAGE V GFR <15 VERY LITTLE GFR LEFT</content>
<content>ESRD GFR <15 ON MANAGER ORACLE RETAIL</content>
<content></content> Glomerular filtration rate/1.73 sq M pre dicted among non-blacks [Volume Rate/Area] in Serum or Plasma by Creatinine-based formula (MDRD) [facility] ID Date Data Source [id number] 01/25/2020 07:57:00 AM EDT [facility] Name Value Range Interpretation Code Description Data Chasity rce(s) Supporting Document(s) Hemoglobin [Mass/volume] in Blood 13.6 g/dL 12.0-18.0 [facility] ([facility]) Erythrocytes [#/volume] in Blood by Automated count 4.48 x10*6/UL 4.2 0-6.30 [facility] [facility] Leukocytes [#/volume] in Blood by Automated count 8.8 x10*3/UL 4.1-10 .9 [facility] ([facility]) Hematocrit [Volume Fraction] of Blood by Automated count 40.5 % 3 7.0-51.0 [facility] ([facility]) MCV 90.2 fL 80.0-97.0 [facility] ([place] [facility]) MCH 30.4 pg 26.0-32.0 [facility] ([place] [facility]) MCHC 33.6 g/dL 31.0-38.0 [facility] ([place] [facility]) Platelets [#/volume] in Blood by Automated count 291 x10*3/UL 140-440 [facility] [facility] Erythrocyte distribution width [Ratio] by Automated count 12.9 % 11.6-13.7 [facility] ([facility]) MPV 8.2 FL 7.8-11.0 [facility] ([place] [facility]) Mid % 7.6 % 1.7-9.3 [facility] [facility] Lymph % 36.2 % 10.0-58.5 [facility] [facility] Mid # 0.7 x10*3/UL 0.1-0.6 [facility] ([facility]) Lymph # 3.2 x10*3/UL 0.6-4.1 [facility] ([facility]) Neut % 56.2 % 37.0-92.0 [facility] [facility] Neut # 4.9 x10*3/UL 2.0-7.8 [facility] ([facility]) ID Date Data Source [id number] 01/24/2020 10:38:40 AM EDT [facility] Name Value Range Interpretation Code Description Data Chasity rce(s) Supporting Document(s) Progress Note [facility] SKVIKf4bDlAOZxGk20/DHJlqRTZok8BgBAtqFTd9WOnzTIAxW1ZqXRK6pO6wJML1AUrKHdApPjMdHvB0 lbm [file] ICAgICAgICAgICAgICAgICAgICAgICAgICAgICAgIC AgICAgICAgICAgICAgICAgICAgICAgICAgICAgICAgICAgDQogICAgICAgICAgICAgICAgICAgICAgIC AgICAgICAgICAgICAgICAgICAgICAgICAgICAgICAgICAgICAgICAgICAgICAgICAgICAgICAgICAgIC AgICAgICAgICAgICAgICAgDQogICAgICAgICAgICAg ICAgICAgICAgICAgICAgICAgICAgICAgICAgICAgICAgICAgICAgICAgICAgICAgICAgICAgICAgICAg ICAgICAgICAgICAgICAgICAgICAgICAgICAgDQogICAgICAgICAgICAgICAgICAgICAgICAgICAgICAg ICAgICAgICAgICAgICAgICAgICAgICAgICAgICAgIC AgICAgICAgICAgICAgICAgICAgICAgICAgICAgICAgICAgICAgDQogICAgICAgICAgICAgICAgICAgIC AgICAgICAgICAgICAgICAgICAgICAgICAgICAgICAgICAgICAgICAgICAgICAgICAgICAgICAgICAgIC AgICAgICAgICAgICAgICAgICAgDQogICAgICAgICAg ICAgICAgICAgICAgICAgICAgICAgICAgICAgICAgICAgICAgICAgICAgICAgICAgICAgICAgICAgICAg ICAgICAgICAgICAgICAgICAgICAgICAgICAgICAgDQogICAgICAgICAgICAgICAgICAgICAgICAgICAg ICAgICAgICAgICAgICAgICAgICAgICAgICAgICAgIC AgICAgICAgICAgICAgICAgICAgICAgICAgICAgICAgICAgICAgICAgDQogICAgICAgICAgICAgICAgIC AgICAgICAgICAgICAgICAgICAgICAgICAgICAgICAgICAgICAgICAgICAgICAgICAgICAgICAgICAgIC AgICAgICAgICAgICAgICAgICAgICAgDQogICAgICAg ICAgICAgICAgICAgICAgICAgICAgICAgICAgICAgICAgICAgICAgICAgICAgICAgICAgICAgICAgICAg ICAgICAgICAgICAgICAgICAgICAgICAgICAgICAgICAgDQogICAgICAgICAgICAgICAgICAgICAgICAg ICAgICAgICAgICAgICAgICAgICAgICAgICAgICAgIC CpEZEiZEVvDAHbIUEjUGNnGUSuCFDfOYToAXXzXAVxHBBnZNTjRBJfMPPwSIc1L6wdAXBoRKIjKV7bWY d3Jz8+WGkUDmFuDXC0ufTpcO5CTX8eh1JuPNyzMODho2XsFNu0FB1ZKDKiAXdbCL9JYPmvlr2ZGOOzZX WmxXELv8dwJcReOMU0PGJdDdcfYW7LNMJbS3qtmkHt YOLqHKQLHH8XOvWwZ1RnpF63EIMWNl9+TNrkidJcXtvGRkE7GZCft1UqQTo4IY9TMTFfIkjnc4MzYqBl TCPDAYvhQX9WXRK1BGSvBXPvRm4VSWJuJ292jfZgWH2ZKy6SKoOyBY5ozq1OUcRhFGViLimUDvg1QZkg IC1FpDNmFWpDdp9qxgOqrcJZi8MeauAfwVUSASCmnT CjAOEQMJZ2yyPnavzuNzJjTLChKr4sVn8hSUOqEWHeQgN8DQRMIX2XAXJqEAQoiLZqDGYsLNFAAD9JYB pfKCC3VIFdrpIvyRQuHYqfYK4SEMSvslMlRCemDAYLFDc+Gm3UQQ6cm1EiRZioJBRvPY3hlt3BUKiIPs EgX6F2iWHjQ1R3SKuiFb3GGSChZDLyOZlzZVLLSJqb HR8NGG5vmuG7AO9JuZMdNSJkKKZloPXuISx5I12yyYQwAReaGZ8ZPLY+Minnie+Hs6LIYUzNDCuCNQmMwWt HMUGPjZbF4RjH9EDt1SyQ6GtTN91fDopdvVrJAmwRH9SUW7kTXUlGSEGGF5TfEQycM7fkiTlSHYsWDAZ CtSiV70omUGbBJTlSWL6YTBsAf7UILMmG3VzijWwwW uxzvHcJOEgPPGJTX4YYUpppwShiBChoFdwWV53wVlgSG3QRn0PQoRrDM0vfx8WdUYmGm7HJWKmYt0ORK WtDGVtOURyTAF3IMLeDfBxJPltWTVqCRZmCCG8XABiGRHtEX4WRpDyZYTdLEq9MQFpVAOyQJYvmj6UYS YfFPMhGDCyRSYqZZAvHMXlQMvkREKcZQEfWJI0DUQw DBZrGQ9HFlVnHREgGWR8LwJoZDNtDEJaki3KRWJdASLfHgV7AMWgABWqBGGzBLruDUTuVPCiVZh2PCVt VOTjYD0DBpCwWCAoOWP3ETSrFKCrGNOqfl9XTEWmTRQgGfl2RQEqDWSkAUDpPOvrOGUlQNT5YBKzXXYj CEYiRH5IHqAfRSHnWLOhLiXcSHHuGPQvcr5EMOEjOM XsJBTzLoYwVKCiQVBvNQgaHJTjGJB6Azv7IEWgSWSjQE5DMtHlXVUkJAO5EQLpZDArVAEvmp7ZTRXfRI YxQzEoTyUuXFDdUNPaFSumBKCrHPS6NWDqPTBzLKHjJU4PVhIuUINmHBi4DHgaTOYdXBWqpn3TISFoKS YpCiw4EVVkCSRvLRUwBPxtZRLkBXI2GAN2JZTfIQSs QQ0ZSrToMCXbFLr6TRrfKSBwPKNkju6IKOFvEYQlZTA5NUDpRGGsTKSfLPn3dvNyeMRkOQu2MC5PO0Hd ztEfDgTELe5St417YQQnKLUzDs8CK4amUc8pEXOlJORBIm7IBDn9GPOdW0F1DILfXGVqBAemHYDsTKVn ZjQzMzZkZDFiNjI+WUh6DeMmCkMzTTJ6SvLbPVT8Ee T9TXWaTYVlShBsDOY4Uh9yQYPWJs3+REyksIAtyDkcQGVJEnZ2YLesCIfeIKLLXy0J ID Date Data Source [id number] 01/19/2020 12:17:54 PM EDT [facility] Name Value Range Interpretation Code Description Data Chasity rce(s) Supporting Document(s) Progress Note [facility] EOLMBx4mAnPMIvDm69/ZYDqyJSOjs4MhTQbzJBk7HWzaFYUzY9WdSMG4wI6hTRP0LGqWBfEiZlEiLlHu lbm [file] ICAgICAgICAgICAgICAgICAgICAgICAgICAgICAgICAgICAgICAgICAgICAgICAgICAgICAgICAgICAg ICAgICAgICANCiAgICAgICAgICAgICAgICAgICAgIC AgICAgICAgICAgICAgICAgICAgICAgICAgICAgICAgICAgICAgICAgICAgICAgICAgICAgICAgICAgIC AgICAgICAgICAgICAgICAgICANCiAgICAgICAgICAgICAgICAgICAgICAgICAgICAgICAgICAgICAgIC AgICAgICAgICAgICAgICAgICAgICAgICAgICAgICAg ICAgICAgICAgICAgICAgICAgICAgICAgICAgICANCiAgICAgICAgICAgICAgICAgICAgICAgICAgICAg ICAgICAgICAgICAgICAgICAgICAgICAgICAgICAgICAgICAgICAgICAgICAgICAgICAgICAgICAgICAg ICAgICAgICAgICANCiAgICAgICAgICAgICAgICAgIC AgICAgICAgICAgICAgICAgICAgICAgICAgICAgICAgICAgICAgICAgICAgICAgICAgICAgICAgICAgIC AgICAgICAgICAgICAgICAgICAgICANCiAgICAgICAgICAgICAgICAgICAgICAgICAgICAgICAgICAgIC AgICAgICAgICAgICAgICAgICAgICAgICAgICAgICAg ICAgICAgICAgICAgICAgICAgICAgICAgICAgICAgICANCiAgICAgICAgICAgICAgICAgICAgICAgICAg ICAgICAgICAgICAgICAgICAgICAgICAgICAgICAgICAgICAgICAgICAgICAgICAgICAgICAgICAgICAg ICAgICAgICAgICAgICANCiAgICAgICAgICAgICAgIC AgICAgICAgICAgICAgICAgICAgICAgICAgICAgICAgICAgICAgICAgICAgICAgICAgICAgICAgICAgIC AgICAgICAgICAgICAgICAgICAgICAgICANCiAgICAgICAgICAgICAgICAgICAgICAgICAgICAgICAgIC AgICAgICAgICAgICAgICAgICAgICAgICAgICAgICAg ICAgICAgICAgICAgICAgICAgICAgICAgICAgICAgICAgICANCiAgICAgICAgICAgICAgICAgICAgICAg ICAgICAgICAgICAgICAgICAgICAgICAgICAgICAgICAgICAgICAgICAgICAgICAgICAgICAgICAgICAg ICAgICAgICAgICAgICAgICANCjw/jLEpM9imdAAgpb H9J3cjQf4KEm9QQJ9mb3KkMKQxYPtmvsStHpbRSwVpSHDoOnqOIkc8VTqzUW3XaXUiX7YwH2JlSSqgJF 8VZKPpPQIksFYrPFNnYXDrPiJ2QGEcIIytHO5HhNRfLCuiRKCgMEYhQbHtXGZaIEDpHDMqMS3MLCMtS5 82hpBiPv5PVq5RHlDfUP6ifh6IPqggKOCjFdiLZij2 DPhxWB7VgXMdaAQbUQQkHHKGCuDbU1glk2CpLwIbNGSLRCncYM3Ak3JsyUCpUXb+Nn5TJX9yo0WmQAdu FWVmAM0yxd7JNGyZVxQjE6KtbCnqYSHqi8nbNDIsDN5nzUSvSRT9OIKwxkZyQ9ofqSktnwpaMTOyRCVz Me4jEn2uCXEbIFS8FbHtZTCDCX5LZZFjVAMzdNVzGE MzTIYUTK4CSAgiHXK7DYKiuwNphTNbXWjzNM3SKTLlwvVcGiryCNMYBJh+Vi4VQY5ia7CaAVstAXKvKY 0rsl9KEDwOLxOnO0I1dEQkR1D7URvpIa2DQGTxRSYbHjkgSIPEAUxeFA8JGP1sjoO8CS2LxHSkXOEiYC XdoTWvUTc2S31fjRZoCMikNQ2KWQE+Minnie+Hj7WMHKb GNZcQNVcKiMhDGLYVnUmZ1WyB7CHa5TqI8ReKI11kUtkksTmOMwhVA8ZXU1nAOMzTWBROH5NtMLvhM8b mwGgUNYlVQOEZrZhW39bdTVuWUAjLYH0RIXcBu5QQIOjF1CsmbRabXxxazFzEDLkQQLDCZ6NPAjsuhFe kENzzXlfYI91gNpfWZ6GEc5XJoGjPX6jmz4CbTWvSb 1TUODnAl1FNZMuEWKvEKKcTVF0SOZyUiLiOMsoWGCvLKVyETV3PEPqQJGwAZ3BZvWmEJIpTbyvGXLtDI AgMPCesk9XOBAbEJGqSDn2IyZmGYVuMUZsARbpSGRrJQJlIWX9FNLaKFHiYK7BJbDvYFDhTMNdDFPjVF UfQVRndq5DLHPcIZFqWNHjYuDnZOHaXPExLTvjOXTc GZR0GHojMVYqAEDfNR6PXzFlEPIoJSmiYaSpWHHaSHZrrt7MRFUwHRMhBZTtALWiRUOjJLNgLTmvKSFa SAR8HVX1AMHiIUTxMY0OKkOlWHIzWJT2KPxxDJHyMZDreb2RWCZpFWCwCNX4SGQzCTSuMKCgHDvnWVIb ZVSjTDq8HMPmJYVlDY4CQoKiLQGfSKR0FcnuTKWxIG Dzbl7TTQFrUAKfWtOrZFUaWGVdVBYlFAexZRZoECOeSeW9XRTkUNNaMW3JHrUfDCUuNlZ3IZzaJJKtMQ Klhw6WULBtDSTuSjc8KjHoOHMiHCOiYDpuVWUiNXM6XQwtZLMtWGTnFN0IZzQyFWUiLeQ6BAQeCMCwTO Awqi6PWPUoUEDwLAW0KtUyOJWpUFGbXIffTCNkDWV4 OMHiOCIwMKBcXE0DYcCzKHLoRwF1DALzAGMcECGszh5GMLGtXCRxUZo6HvLxWHOrRGDnBGtpODGhGVW3 FBT3KXQmWGKcIO6BFmLiLYDrMmwbLILsNFCkQENzmi2ERGXnUPExHsE5LkUeWPLoBJFeXVdaFVWhPSN0 KtW1YDWvAEOwNE5IYeFlWPPbJuhaQfCqBZNuSUNgqk 5QKYUmYVNwCAG8HhZxXHLgXTSlCGsiSXZdQMV9Gch8XEWnJMXgDE6JKzCwSPkkTUKQFqo6RJtnN2w4HG EzGb8BW7Biu7NwPiQzRFJLMSdeJJ1ovpOyUBNgVn6QX0sGEvecBaX4QKG2EVF4OOI0EMLhV6NmNhG5Dq IcUvTsNRnwNA3zKPO5GFm2LUwwKmFjDGm4SKZ0ZsSe WVBsEWLaUVL2PDInKbRyHI0ACp2NRdL6CIF8bCFqQt6LIvv1VhoUJnNaIH5VTNq= ID Date Data Source [id number] 01/08/2020 12:00:00 AM EDT [facility] Z[facility] Gonzalez, [employer] Patient Name: BEVERLY BIRD [facility] 1945[email or web address] [address] Date of Exam: 01/08/2020PH#: Fax: [phone] EXAM: PELVIS (1OR2 VIEWS) X-RAYCLINICAL INFORMATION: Pain.AP examination of the pelvis shows bilateral hip changes. See thereferable hip reports.SCOTT Barnard/Nita you for referring TAYLER BIRD to our office. Electronically Signed - MARISA JENKINS DO 01/08/20 12:13 Name Value Range Interpretation Code Description Data Chasity rce(s) Supporting Document(s) ID Date Data Source [id number] 01/08/2020 12:00:00 AM EDT [facility] Z[facility] Gonzalez, Gwendolyn Patient Name: BEVERLY BIRD [facility] 1945[email or web address] [place] [address] Date of Exam: 01/08/2020PH#: Fax: [phone] EXAM: LUMBOSACRAL SPINE (4 VIEWS)CLINICAL INFORMATION: Pain.Comparison 01/25/2013.There is a levoconvex curve, status quo. Partial syndesmophyte formationis again seen at every level bilaterally, increased from the prior exam.There is no change in the pedicles. There is no change in the appearanceof vertebral body height or alignment. There is anterior lipping and discspace narrowing at every level, status quo. There are degenerative facetjoint changes bilaterally at every level, status quo.IMPRESSION:Chronic changes as described above.SCOTT Barnard/Nita you for referring TAYLER BIRD to our office. Electronically Signed - MARISA JENKINS DO 01/08/20 12:13 Name Value Range Interpretation Code Description Data Chasity rce(s) Supporting Document(s) ID Date Data Source [id number] 01/08/2020 12:00:00 AM EDT [facility] Zuri Gonzalez Np Patient Name: TAYLER BIRD[address] [facility] Date of : 1945[place] [address] Date of Exam: 01/08/2020PH#: Fax: [phone] EXAM: HIP RIGHT UNILATERAL (COMPLETE) X-RAYCLINICAL INFORMATION: Pain.Two views.There is mild marginal osteophytosis with asymmetric hip joint spacenarrowing. There is no acute fracture, dislocation, or subluxation.IMPRESSION:Right hip degenerative changes.SOCTT Barnard/Nita you for referring TAYLER BIRD to our office. Electronically Signed - MARISA JENKINS DO 01/08/20 12:13 Name Value Range Interpretation Code Description Data Chasity rce(s) Supporting Document(s) ID Date Data Source [id number] 01/08/2020 12:00:00 AM EDT [facility] Zuri Gonzalez Np Patient Name: TAYLER BIRD[address] [facility] [place] : 1945[place] [address] Date of Exam: 01/08/2020#: Fax: [phone] EXAM: HIP LEFT UNILATERAL (COMPLETE) X-RAYCLINICAL INFORMATION: Pain.Two views.There are no prior left hip xrays for comparison.There is an age undetermined impacted fracture of the left femoral neckseen in conjunction with osteophytosis. A ring osteophyte can give thesame appearance. There is a lucency seen along the base of the greatertrochanter.IMPRESSION:Abnormalities as described above. Hip CT is recommended.SCOTT Barnard/Nita you for referring TAYLER BIRD to our office. Electronically Signed - MARISA JENKINS DO 01/08/20 12:13 Name Value Range Interpretation Code Description Data Chasity rce(s) Supporting Document(s) ID Date Data Source [id number] 01/04/2020 10:41:49 AM EDT [facility] Name Value Range Interpretation Code Description Data Chasity rce(s) Supporting Document(s) Progress Note [facility] MOMOKh7sNwYSUwIa95/OBWrgIFAyl6TxTYhoIDi8TRzjAZKoN9FhZSW9oU3gHYZ5RBiZYeWoFiIhKUL3 lbm [file] AgICAgICAgICAgICAgICAgICAgICAgICAgICAgICAgICAgICAgICAgICAgICAgICAgICAgICAgICAgIC AgICAgICAgICAgICANCiAgICAgICAgICAgICAgICAg ICAgICAgICAgICAgICAgICAgICAgICAgICAgICAgICAgICAgICAgICAgICAgICAgICAgICAgICAgICAg ICAgICAgICAgICAgICAgICAgICAgICANCiAgICAgICAgICAgICAgICAgICAgICAgICAgICAgICAgICAg ICAgICAgICAgICAgICAgICAgICAgICAgICAgICAgIC AgICAgICAgICAgICAgICAgICAgICAgICAgICAgICAgICANCiAgICAgICAgICAgICAgICAgICAgICAgIC AgICAgICAgICAgICAgICAgICAgICAgICAgICAgICAgICAgICAgICAgICAgICAgICAgICAgICAgICAgIC AgICAgICAgICAgICAgICANCiAgICAgICAgICAgICAg ICAgICAgICAgICAgICAgICAgICAgICAgICAgICAgICAgICAgICAgICAgICAgICAgICAgICAgICAgICAg ICAgICAgICAgICAgICAgICAgICAgICAgICANCiAgICAgICAgICAgICAgICAgICAgICAgICAgICAgICAg ICAgICAgICAgICAgICAgICAgICAgICAgICAgICAgIC AgICAgICAgICAgICAgICAgICAgICAgICAgICAgICAgICAgICANCiAgICAgICAgICAgICAgICAgICAgIC AgICAgICAgICAgICAgICAgICAgICAgICAgICAgICAgICAgICAgICAgICAgICAgICAgICAgICAgICAgIC AgICAgICAgICAgICAgICAgICANCiAgICAgICAgICAg ICAgICAgICAgICAgICAgICAgICAgICAgICAgICAgICAgICAgICAgICAgICAgICAgICAgICAgICAgICAg ICAgICAgICAgICAgICAgICAgICAgICAgICAgICANCiAgICAgICAgICAgICAgICAgICAgICAgICAgICAg ICAgICAgICAgICAgICAgICAgICAgICAgICAgICAgIC AgICAgICAgICAgICAgICAgICAgICAgICAgICAgICAgICAgICAgICANCiAgICAgICAgICAgICAgICAgIC AgICAgICAgICAgICAgICAgICAgICAgICAgICAgICAgICAgICAgICAgICAgICAgICAgICAgICAgICAgIC AgICAgICAgICAgICAgICAgICAgICANCjw/lCHaG9vr zCBzhcC4W9kyVv0EWm9TAL0sj1NwGZLoDVitujKfSdcEOzXjQVHxCesCKtz9JNacQI6KhYZgM5UwW3Ea CGieWI5ETQOeIQOwuMFiOSJjRQImUwW2CDRaPZxrHR2LbDCxERycLZZdXUDfGmAcYZNkDVKuKBGySNIw JULLAVBtLQDhMoIqNWImCCCwFEddYOOTXN1FHaCzS4 YleW70CDhZVf0+JTbizpSlZglRFeO6YZHmo2AkPOj7RD5CBGKnCbxzp8MhPwMnMPZGCCidTQ3GVCU7HM D8APHyDp2KUIZrT359qdVyTT4UVo6MNvQlQE0cuc9UTvRkORTxZvaEBaz2JEyvKK4CyNRePSfDgq3crn AkkhVLw8IqueVpbPVBHYBnwMJmFZVQMSD0edOoturh SzPsUAJfRU7wDG4xCLJbPNE5RxCtBPWENO0QNBXeXUJcfNGrBIEhWIZBCX7FGBocWBB7GPLvuoFcnGJs CNgfEA1MBZXfxyVxXoBzYZZAMMf+Zk8ATG8tj2BoBPfyEgEnMU1oym2DIMyWIgOrX8G4yFWgS7R3EQjs Zz1BSUHdPSMgZfPwGUQNOAaoIK6OHB1gmzJ1HT5XoJ XoAHBqPGWzqGSiQWa7T67eyYDaDSxfLG4NLBE+Minnie+Sc0DRWEcOTJbSPQgHkGaBMDYHwQkA0PuL0WZd5 QsA6VxPV79bMioblKyPApgIT1BEE0nPCWnWPWXHG2ZqIXdqD6fulHsGIZnGFWAArOjA61qsHFyGDEyIF IvKIOhUv1NEFKwK6RqsvPswUuiybKtFBZgXAGRFU2U UXydezYplHXluWunQA32gEgeNW3JCu0RUkQzHG0ykq8JeCNoHb0ANWJhXm2JWHEkVAVnVOGnVDX1IQAl NwIoLRxiTIHlRXJqTMR5IHNqTQNhGY1OOhLwDJUdBQB8LSUrMTKyJEOkvn8QAUHhSRJ4MVG0EHMxUVWr AFXdBByiZMNrRZZmJQN2HXQtUKSqAF6PNxYzQVLuOF CqZXNqIZNbKDHkxa2BNWPeNNKmLrYiUTOsRREuUJXfGKycVSGhWIE4SXI2KKBeWIHjML8HDjGoYKFcKE ruTejcKNZeCCTzsp9UOMRpKVXkROs9EKFmGIZgBBKoKOexEBAxMAEdLOQxODDxYQHcEH0DEbRsLCWdOX DfIpCcIVHeKNDcui3UYKZkCIDdIGPyONPvPJCqGICr PYijMIUtVDX5CSZfNMRgQOGgEO0JYyOpOESqCTmfXkkoNLEsNEOgkg4XUMTrXRAbTlGoOkQcOXNnAGYx UPsjFTVbCVGoMNB3KUYzCTVaXY9NZqRvEMXuPvA4XRttCJNuBNWfwv4OJALhXJErTcN0PVMkAOUoVYLr AIdzPYZkDVU4YYT4WYNlZRLjJC9GLcWpTDGsJgzsTc RiSTDuBUIcnn6YXGEaHVMkTVPtLSExQXLlDHBrRIilHXWfRJD9SwX4TZBaVVUpIE5WCmZmLWSzCfy7Px YmPSAtIJOroi5REKOcJHCjEGy0LXFrDHGmHLZjGQlkVUYvCBDuQEm7PTToRHDqPF8RRrGiNWYqCFY1KU zwTDRhAZHtva0FHXBbLEK4OXxvXXByEJDmIRTzBXkh LEEzXBNxEVQ8PUEcQMQrSF7RMwNhRAEsFWFjEPBlBDAjODMtbs6DBZNfDAZ4MvL9HLLhISToVBKyPTqa AVUqULLpAgK5CDKzSXEeLX4WNzPtHYViRDC4HeWsBUSeRIBofg4VLSPbABD5Vci5FYGwYINmYJEiQVjp DSZmNIX6CeX7HLTdPGDyVA2YHnEiXEIrCRUrIAOoOP XpRUVpvb8ZLCZzCEC3YHU6LgClVEZyBYRsKPa3nyOjtKGuMXv4AJ8GL6KbxaDvAodUBx6Dt731GKD2BD DpFx4GE0ubMb4xSDKaJMAIKx8JXZm2Y1FhBNAjM7PoNFPpSaL6OSOyLfEmLAywOsakUhstWGP+IDw3Yz W4WvS5KoBzSuJeDWy6IyFtN3B3XXT0EBI5PESgSs4s XSANCj4+TGojgHGufMdeJUKGDbL9Uff7HQmtEPMEEy0L ID Date Data Source [id number] 10/11/2019 11:43:17 AM EST [facility] Name Value Range Interpretation Code Description Data Chasity rce(s) Supporting Document(s) Progress Note [facility] KGDBWy4dXrQJFnYj47/BBQknYIPsw3HpRLzxYEt1GJrrJETvS1XsRFA0zR8pVZF9PGaFAjRcIqFbTsH2 lbm [file] ICAgICAgICAgICAgICAgICAgICAgICAgICAgICAgIC AgICAgICAgICAgICAgICAgICAgICAgICAgICAgICAgICAgICAgICAgICAgICAgDQogICAgICAgICAgIC AgICAgICAgICAgICAgICAgICAgICAgICAgICAgICAgICAgICAgICAgICAgICAgICAgICAgICAgICAgIC AgICAgICAgICAgICAgICAgICAgICAgICAgICAgDQog ICAgICAgICAgICAgICAgICAgICAgICAgICAgICAgICAgICAgICAgICAgICAgICAgICAgICAgICAgICAg ICAgICAgICAgICAgICAgICAgICAgICAgICAgICAgICAgICAgICAgDQogICAgICAgICAgICAgICAgICAg ICAgICAgICAgICAgICAgICAgICAgICAgICAgICAgIC AgICAgICAgICAgICAgICAgICAgICAgICAgICAgICAgICAgICAgICAgICAgICAgICAgDQogICAgICAgIC AgICAgICAgICAgICAgICAgICAgICAgICAgICAgICAgICAgICAgICAgICAgICAgICAgICAgICAgICAgIC AgICAgICAgICAgICAgICAgICAgICAgICAgICAgICAg DQogICAgICAgICAgICAgICAgICAgICAgICAgICAgICAgICAgICAgICAgICAgICAgICAgICAgICAgICAg ICAgICAgICAgICAgICAgICAgICAgICAgICAgICAgICAgICAgICAgICAgDQogICAgICAgICAgICAgICAg ICAgICAgICAgICAgICAgICAgICAgICAgICAgICAgIC AgICAgICAgICAgICAgICAgICAgICAgICAgICAgICAgICAgICAgICAgICAgICAgICAgICAgDQogICAgIC AgICAgICAgICAgICAgICAgICAgICAgICAgICAgICAgICAgICAgICAgICAgICAgICAgICAgICAgICAgIC AgICAgICAgICAgICAgICAgICAgICAgICAgICAgICAg ICAgDQogICAgICAgICAgICAgICAgICAgICAgICAgICAgICAgICAgICAgICAgICAgICAgICAgICAgICAg ICAgICAgICAgICAgICAgICAgICAgICAgICAgICAgICAgICAgICAgICAgICAgDQogICAgICAgICAgICAg ICAgICAgICAgICAgICAgICAgICAgICAgICAgICAgIC BsTAIsAPWmXEKjOFNcDVEcHRTzYIJhVBWmCFWvKRPoRFXjUFNaFVTdAIBwZJTuRPDaOKGoXOZeMVg7H6 xyGJJfXFYwDI6oOGs8Gw5+XHgOZeRwHBE0wwAwzW0QDV8gm3BdIXfgGZGql7EdRVx5BR7SRTEpHZrbQJ 6UZGdnct3DLPCuWZBlmQGSz8zuKoFkLPX7LTCjTvnk YP4WLWRuY4dfvzIyUAKkMRGQHAzyZUWBERfvCLMUCV3HKtOrB5OpsV47IBWWFz1+DQplbmRvYmoNCjIz BLEle5OaKTz9ML6RBENrTskdr5ZgEaNkKCMSGJlqPH6OLJP9SGC5XDBpNk0AIZPtX158ibAoGO7BVt0R UnNhEP4nnu0EGyHuCEVxBmkDCuu0EUwoKC9PyYXuBR vIqc1uapPqzwDFn1IsyqEkgAJRPJRgjFgmBPFgYXBgWOciNaVpPLUmCf5mOaEzUbPnPGq5FeDjKP5fLZ zbMB8GDSY7YOzjDXGpXWHcL0yCLoNlOJWpSKOjtJxgSW6BFqBwB6EskdTllWTbWkIfGPFPXw6+DQplbm FnHcrEUqC8MATas1EoNTi7LB7NYGIuHFnoUO5GJNWe yD6uWYjlON8LPrJnOXWpJLLAFsAgS79xwROpJQk2Y9IjYtBpYZTzDtowRYBjUJjdCaUxWFOyNpAhIAvq ID4+ID4+CGcoGZ3HJUzxpgEgSXTdEu9MCILqCBBwAC5dYZBtGQZkO2Y7dVkqTNHDVrUhV4xcvywaZV0d JDAaU141yHtlgiGxPEWdZAPjIt8ETGXgDHX9WKRimE VjNaBtINVCAZmtWV3HnXLnUMR9xQ2qYHaqOPLsHUOyM5pSXuJdjQbuPM76lMsevuNsbGGhVLv+Pg0KZW 4jh7CrQMh5csLdJNquASB0UTtsUVPnZNJeNUTyVYY4AFE3AKZSTvBgFDBfDWSvLLutEYEcRDWypf3KUH BiUJYsNKl6BqIeOBCqABYjSRaaINQaYJM7VbUaNEXv BRZsBB7DCuKgZPSpNEDkMDlgYFTnVRLcom5AQIJrQZVqXKChGoDoIXQcOAIuEWyxLMUtJKP4WtX9DAQo ZZLiMG8QMhFeVMWpYYixBLzlJQYjLRWros7SZVJkSCPnKaW4MeNwPLSkRAQkDAaaSRGdKQW6HzRiENQm UMGeER1IRwEpSYMzSTi5JPNfHJMdBEVblq6HNSRcZQ NvIDh1VqXeNJObWOShCZmvXWGmBOJqTTazZJBbIKXxHV0NNkBiRPOePGSfCBHyDSYuPIAows6XNEXmMZ UfUzUqGEZeMHHiEHOjIRudBMDgZKJeIQV4EEQvNIPmHM3ZJgLaQAFtNDW0ZCIhSGCgVHMgfi3UPNKgKM RtWcr9NGLoNSNtNQHlLAtyTGGyDER8Skd0NLRxASPw AG7NJuFvHWXuZnQ4SYRkOTEkEKZbxj9OWFKuUGBvKJtfPJJrOABaEJJjOUopNBDfRUX2EJfbFVPeNSDw WT8JWbJlDQVjGqHiIyIlJFWdWBEwmg1QIKNrRMOqRqtpIuHgDQJzKEKqHKwrZBOtHYS9CqpsDWGiTWPu FP5CCyTgYHKkVeE9NSYwCEMwNGRhzo3QiGIdoYwxru 2CBDqVFc9HuGyzMXE6EHhdBf1khFYwZJVuQBJYIl5XsiZiIGIlNQDLMVasCGZnZMQ1IXM5XmN1BXhhUb L1HlynTnXiEVPfTKF3CaVxQRRuNdB9DqoeTNFmUYQ0UPDtXBtsLYJlBwKzMXC3LJBeQ1FuENH+IF0gDQ o+Cv3Xz9GwduW5alEcHXucEqV9KI4YLYJGR4SHUk== ID Date Data Source [id number] 10/11/2019 11:29:52 AM [facility] MAMMO DIGITAL SCREENING BILATERAL [id number] INAL RESULTInterpreted by:Fritz Puri MDBILATERAL DIGITAL MAMMOGRAM WITH COMPUTER-AIDED DETECTIONHISTORY: The patient has history of right 2012 as well as radiation therapy.COMPARISON: Mammograms dating back to 07/27/2013Last Reported Clinical Breast Exam: UnknownTECHNIQUE: Craniocaudal and mediolateral oblique digital mammograms were obtained with tomosynthesis. Computer-aided detection was utilized.FINDINGS:There are scattered areas of fibroglandular density (category B).Again noted are post lumpectomy changes in the upper right breast.No abnormal mass, suspicious calcifications, or new architectural distortion is identified.IMPRESSION: 1. Benign mammogram. 2. No evidence for malignancy. 3. Recommend routine followup examination in one year. BI-RADS 2 - BENIGN FINDINGSThis document has been electronically signed by Fritz Puri MD on 10/11/2019 11:27 AM Name Value Range Interpretation Code Description Data Chasity rce(s) Supporting Document(s) ID Date Data Source [id number] 09/26/2019 07:39:00 AM EST [facility] ([facility]) Name Value Range Interpretation Code Description Data Chasity rce(s) Supporting Document(s) Urea nitrogen [Mass/volume] in Serum or Plasma 18 mg/dL 7-18 [facility] ([facility]) Glucose [Mass/volume] in Serum or Plasma 116 mg/dL 74-99 [facility] ([facility]) 100-125 mg/dL PRE-DIABETES/FASTING >126 mg/dL DIABETES/FASTING Creatinine 0.9 mg/dL 0.6-1.3 [facility] ([facility]) Chloride [Moles/volume] in Serum or Plasma 101 meq/L 98-107 [facility] ([facility]) Carbon dioxide, total [Moles/volume] in Serum or Plasma 26 meq/L 21 -32 [facility] ([facility]) Sodium [Moles/volume] in Serum or Plasma 139 meq/L 136-145 [facility] ([facility]) Potassium [Moles/volume] in Serum or Plasma 4.4 meq/L 3.5-5.1 [facility] ([facility]) Calcium [Mass/volume] in Serum or Plasma 9.6 mg/dL 8.5-10.1 [facility] ([facility]) Glomerular filtration rate/1.73 sq M pre dicted among blacks [Volume Rate/Area] in Serum or Plasma by Creatinine-based formula (MDRD) Laboratory test result [facility] <content>CHRONIC KIDNEY DISEASE STAGING PER NKF</content>
<content></content>
<content>STAGE I & II GFR >= 60 NORMAL TO MILDLY DECREASED</content>
<content>STAGE III GFR 30-59 MODERATELY DECREASED</content>
<content>STAGE IV GFR 15-29 SEVERELY DECREASED</content>
<content>STAGE V GFR <15 VERY LITTLE GFR LEFT</content>
<content>ESRD GFR <15 ON [employer]NA[employer]</content>
<content></content> Glomerular filtration rate/1.73 sq M pre dicted among non-blacks [Volume Rate/Area] in Serum or Plasma by Creatinine-based formula (MDRD) Laboratory test result [facility] ([facility] ) Procedure Social History Code Duration Value Status Description Data Source(s ) Smoking 08/27/2020 08:34:26 AM EST Never smoked tobacco (findi ng) completed Never smoked tobacco (finding) [facility] ([facility]) Alcohol intake 05/18/2020 12:00:00 AM EDT Current drinker of al cohol (finding) completed Current drinker of alcohol (finding) [facility] Tobacco use and exposure 05/18/2020 12:00:00 AM EDT Never used co mpleted Never used [facility] Smoking 05/18/2020 12:00:00 AM EDT Never smoker completed Never s [facility] Alcohol intake 01/19/2020 12:00:00 AM EDT Current drinker of al cohol (finding) completed Current drinker of alcohol (finding) [facility] Smoking 01/19/2020 12:00:00 AM EDT Never smoker completed Never s [facility] Alcohol intake 01/04/2020 12:00:00 AM EDT Current drinker of al cohol (finding) completed Current drinker of alcohol (finding) [facility] Smoking 01/04/2020 12:00:00 AM EDT Never smoker completed Never s [facility] Alcohol intake 10/10/2019 12:00:00 AM EST Current drinker of al cohol (finding) completed Current drinker of alcohol (finding) [facility] Smoking 10/10/2019 12:00:00 AM EST Never smoker completed Never s [facility] Vital Signs ID Date Data Source UNK Name Value Range Interpretation Code Description Data Source(s) Body mass index (BMI) [Ratio] 37.0 kg/m2 37.0 k g/m2 [facility] ([facility]) Oxygen saturation in Arterial blood by Pulse oximetry 98 % 98 % [facility] ([facility]) Body weight 240.00 [lb_av] 240.00 [lb_av] [facility] ([facility]) Body height 67.5 [in_i] 67.5 [in_i] [facility] ([facility]) 5'7.50" Heart rate 108 /min 108 /min [facility] ([facility]) Diastolic blood pressure 64 mm[Hg] 64 mm[Hg] [facility] ([facility]) Systolic blood pressure 136 mm[Hg] 136 mm[Hg] [facility] ([facility]) Diastolic blood pressure 70 mm[Hg] 70 mm[Hg] [facility] Systolic blood pressure 140 mm[Hg] 140 mm[Hg] [facility] ([facility]) Body mass index (BMI) [Ratio] 37.2 kg/m2 37.2 k g/m2 [facility] ([facility]) Oxygen saturation in Arterial blood by Pulse oximetry 97 % 97 % [facility] ([facility]) Air Body weight 241.12 [lb_av] 241.12 [lb_av] [facility] T ([facility]) Body height 67.5 [in_i] 67.5 [in_i] [facility] ([facility]) 5'7.50" Heart rate 84 /min 84 /min [facility] ([facility]) Body mass index (BMI) [Ratio] 37.0 kg/m2 37.0 k g/m2 [facility] ([facility]) Oxygen saturation in Arterial blood by Pulse oximetry 97 % 97 % [facility] ([facility]) Body weight 240.00 [lb_av] 240.00 [lb_av] [facility] Body height 67.5 [in_i] 67.5 [in_i] [facility] ([facility]) 5'7.50" Heart rate 102 /min 102 /min [facility] ([facility]) Diastolic blood pressure 84 mm[Hg] 84 mm[Hg] [facility] Systolic blood pressure 150 mm[Hg] 150 mm[Hg] [facility] ([facility]) Body mass index (BMI) [Ratio] 36.7 kg/m2 36.7 k g/m2 [facility] ([facility]) Oxygen saturation in Arterial blood by Pulse oximetry 98 % 98 % [facility] ([facility]) Body weight 238.00 [lb_av] 238.00 [lb_av] [facility] Body height 67.5 [in_i] 67.5 [in_i] [facility] ([facility]) 5'7.50" Heart rate 104 /min 104 /min [facility] ([facility]) Diastolic blood pressure 68 mm[Hg] 68 mm[Hg] [facility] ([facility]) Systolic blood pressure 136 mm[Hg] 136 mm[Hg] M [facility] ([facility]) Body mass index (BMI) [Ratio] 37.5 kg/m2 37.5 k g/m2 [facility] ([facility], [facility]) Body height 68.5 [in_i] 68.5 [in_i] [facility] ([facility], [facility]) 5'8.50" Body weight 250.00 [lb_av] 250.00 [lb_av] [facility] T ([facility], [facility]) Body temperature 98.4 [degF] 98.4 [degF] [facility] ([facility], [facility]) Oxygen saturation in Arterial blood by Pulse oximetry 98 % 98 % [facility] ([facility], [facility]) Respiratory rate 17 /min 17 /min [facility] ( [facility], [facility]) Heart rate 106 /min 106 /min [facility] ([facility], [facility]) Diastolic blood pressure 68 mm[Hg] 68 mm[Hg] [facility] ([facility], [facility]) Systolic blood pressure 158 mm[Hg] 158 mm[Hg] [facility], [facility]) ID Date Data Source [id number] 06/03/2020 11:49:31 AM EDT [facility] Name Value Range Interpretation Code Description Data Source(s) WEIGHT RECORDED 244 lb 244 lb [facility] ID Date Data Source [id number] 01/19/2020 12:17:54 PM [facility] Value Range Interpretation Code Description Data Source(s) WEIGHT RECORDED 245 lb 245 lb [facility] ID Date Data Source [id number] 01/04/2020 01:37:55 PM [facility] Value Range Interpretation Code Description Data Source(s) WEIGHT RECORDED 245 lb 245 lb [facility] Body height Measured 68.5 in 68.5 in [facility] ID Date Data Source [id number] 10/11/2019 11:43:17 AM EST [facility] Name Value Range Interpretation Code Description Data Source(s) WEIGHT RECORDED 245 lb 245 lb [facility] Body height Measured 68.5 in 68.5 in [facility] Patient Treatment Plan of Care Planned Activity Planned Date Details Description Data Source (s) Inveltys 1% Ophthalmic Suspension 09/02/2020 12:00:00 AM EST [facility] (Herman Levy MD [facility]) BromSite 0.075% Ophthalmic Solution 09/02/2020 12:00:00 AM EST [facility] (Herman Levy MD [facility]) moxifloxacin 5 MG/ML Ophthalmic Solution 09/02/2020 12:00:00 AM [facility] (Herman Levy MD [facility]) anastrozole 1 MG Oral Tablet 12/19/2019 12:00:[address] [facility] Clonazepam 2 MG Oral Tablet [facility]
--- OUTSIDE RECORDS SUMMARY | 2020-09-23 09:58 | CCD | Continuity of Care Document ---
Author Author Nazanin Sethi Organization Unknown Address [id number] [place] [address] Phone [phone] Care Team Providers Care Tax Director Name Role Phone Jaelyn Pop MD AUTM Unavailable Tristen Dutta JR, MD AUTM Unavailable Rakel Sharif ANP AUTM [phone] [facility] AUTM [phone] Problems Active Problems Provider Date Abnormal glucose [...] Dutta MD 1 Calcium + Vitamin D3 [id number] Chewtabs 1 qam Unknown Medications Administered in Office Medication SIG Qnty Indications Ordering Provider Date Administration Of Flu Vaccine Inj ection Rakel Canales [facility] 06/22/2019 Administration Of Flu Vaccine Inj ection Rakel Canales [facility] 06/08/2017 Administration Of Flu Vaccine Inj ection Alli Lockwood, [facility] 05/22/2015 Administration Of Flu Vaccine Inj ection Tristen Dutta MD 07/28/2013 Administration Of Flu Vaccine Inj ection Tristen Dutta MD 05/15/2010 Immunization Each Add'l Vacc/To Injection Nazanin Jack, ALBARO 009 Immunizations CPT Code Status Date Vaccine Lot # [id number] Given 06/27/2020 Influenza Vaccin e Quadrivalent Preser/Antibiotic Free Im Use [id number] 86888 Given 06/22/2019 Influenza Vaccin e Quadrivalent Preser/Antibiotic Free Im Use [id number] 78291 Given 02/23/2018 Pneumovax 23 [id number] Given 06/08/2017 Influenza Vaccin e Quadrivalent Preser/Antibiotic Free Im Use 044354 U-Tetan Given 04/20/2017 Tetanus,Unspecified 49929 Given 05/31/2016 Zostavax Q2037 Given 05/22/2015 Fluvirin Virus Vaccine [id number] 01 Q2037 Given 07/28/2013 Fluvirin Virus Vaccine 04548 01 87436 Given 05/15/2010 Influenza Virus Vaccine 86426 Given 05/10/2009 Pneumovax 23 03309 Given 05/10/2009 Influenza Virus Vaccine Vital Signs [...] H/L Range Note Urine Protein Electrophoresis 02/20/2020 [facility] [address] [place] [address] [phone] Urine Total Protein 17.3 mg/dL Normal Not Estab. Urine Albumin 54.2 % Normal . Urine Xzogp-3-Fiwtlhdz 0.6 % Normal . Urine Rlfeb-0-Dmztlgoo 8.6 % Normal . Urine Beta Globulin 18.3 % Normal . Urine Gamma Globulin 18.4 % Normal . M-Charbel % Not Observed % Normal Not Observed Please Note (SEE NOTE) Normal . 1 Complete Blood Count 02/19/2020 [facility] valentin ball Validation Specialist: [place] [address] [phone] WBC 8.5 x10*3/UL 4.1 - 10.9 RBC [...] 2.0 - 7.8 Comprehensive Chem Profile 02/19/2020 [facility] [place]antoja Validation Specialist: Dr Ramon [place] [id number] [phone] Glucose 115 mg/dL High 74 - 99 [...] 60 mL/min >60 3 Lipid Profile 02/19/2020 [facility] , Validation Specialist: [place] [address] [phone] Cholesterol 194 mg/dL 131 - 200 Triglycerides 187 mg/dL High 30 - 150 HDL Cholesterol 52 mg/dL 35 - 60 LDL (Calculated) 105 CALC 50 - 159 Ua Dipstick Only 02/19/2020 [facility] , Validation Specialist: Dr Tristen Dutta [place], [place] [id number] [phone] Urine Color YELLOW Yellow Urine Appearance CLEAR Clear Urine PH 5.0 units 5.0 - 9.0 Urine Specific [place] 1.025 1.005 - 1.030 Urine Leukocytes TRACE Abnormal Negative Urine Blood NEGATIVE Negative Urine Protein NEGATIVE Negative -Trace Urine Glucose NEGATIVE mg/dL Negative Urine Nitrite NEGATIVE Negative Urine Ketone NEGATIVE mg/dL Negative Urine Bilirubin NEGATIVE Negative Urine Urobilinogen 0.2 mg/dL 0.2 - 1.0 Serum Protein Elect W/RFX 02/19/2020 [facility] [address] [place] [address] [phone] Albumin % 55.4 % Low 55.8-66.1 Plnlc-0-Yzvfkodi % 3.4 % Normal 2.9-4.9 Bvpny-1-Lwztgsgsq % 12.7 % High 7.1-11.8 Qlho-1-Jjwfbjwkf % 7.2 % Normal 4.7-7.2 Vbna-8-Cmqbqnows % 7.3 % High 3.2-6.5 Gamma Globulin % 14.0 % Normal 11.1-18.8 Albumin 4.38 GM/DL Normal 3.29-5.55 Mnmth-1-Gaaoyyvad 0.27 GM/DL Normal 0.17-0.41 Vdfwq-0-Jhpccwkjf 1.00 GM/DL High 0.42-0.99 Ynxl-8-Iweqqeihq 0.57 GM/DL Normal 0.28-0.60 Smhe-4-Koesntury 0.58 GM/DL High 0.19-0.55 Gamma Globulins 1.11 GM/DL Normal 0.65-1.58 Total Protein 7.9 GM/DL Normal 6.4-8.2 Spep Interpretation For RFX SEE COMMENT Normal 4 [facility] Pathologist Review REV'D BY O ADJAP <SEE NOTE> Normal 5 Complete Blood Count 01/25/2020 [facility] Validation Specialist: [place] [address] [phone] WBC 8.8 x10*3/UL 4.1 - 10.9 RBC [...] 2.0 - 7.8 Comprehensive Chem Profile 01/25/2020 [facility] [place]antoja Validation Specialist: Dr Tristen Dutta [place], [place] [id number] [phone] Glucose 107 mg/dL High 74 - 99 [...] scan will follow via computer, mail, or glue mixer delivery. Performed at: RN - [facility] [address] [id number] Validation Specialist: Gena Cordova MD, Phone: [phone] 2 100-125 mg/dL PRE-DIABET ES/FASTING >126 mg/dL DIABETES/FASTING 3 CHRONIC KIDNEY DISEASE STAGI NG PER NKF STAGE I & II GFR >= 60 NORMAL TO MILDLY DECREASED STAGE III GFR 30-59 MODERATELY DECREASED STAGE IV GFR 15-29 SEVERELY DECREASED STAGE V GFR <15 VERY LITTLE GFR LEFT ESRD GFR <15 ON GROUP EXERCISE CLASS INSTRUCTOR 4 NO M-SPIKE(S)NOTED. 5 REV'D BY Laron DUNCAN 6 100-125 mg/dL PRE-DIABET ES/FASTING >126 mg/dL DIABETES/FASTING 7 CHRONIC KIDNEY DISEASE STAGI NG PER NKF STAGE I & II GFR >= 60 NORMAL TO MILDLY DECREASED STAGE III GFR 30-59 MODERATELY DECREASED STAGE IV GFR 15-29 SEVERELY DECREASED STAGE V GFR <15 VERY LITTLE GFR LEFT ESRD GFR <15 ON GROUP EXERCISE CLASS INSTRUCTOR Procedures Date Code Description Status 10/11/2019 [id number] Mammogram Completed 09/22/2018 [id number] Mammogram Completed 03/17/2018 [id number] Bone Mineral Density Test Comple frank 03/15/2018 [id number] Bone Mineral Density Test Comple frank 08/18/2017 [id number] Mammogram Completed 02/07/2016 [id number] Bone Mineral Density Test Comple frank 11/28/2015 [id number] Colonoscopy Completed 02/01/2014 [id number] Bone Mineral Density Test Comple frank 12/26/2012 [id number] Mammogram Completed 12/25/2011 [id number] Mammogram Completed 12/15/2010 [id number] Mammogram Completed 05/23/2010 [id number] Colonoscopy Completed 05/22/2009 [id number] Mammogram Completed 05/14/2008 [id number] Bone Mineral Density Test Comple frank 02/16/2008 [id number] Colonoscopy Completed Medical Devices Description No Information Available Encounters Type Date Location Provider Dx Diagnosis Office Visit 03/15/2020 2:00p [facility] SHARMILA Sethi I10 Essential (primary) hypertension E78.2 Mixed hyperlipidemia M15.0 Primary generalized (osteo)a rthritis R93.6 Abnormal findings on diagnos tic imaging of limbs Z85.3 Personal history of malignan t neoplasm of breast E66.09 Other obesity due to excess calories Z68.37 Body mass index (BMI) 37.0-3 7.9, adult Z13.89 Encounter for screening for other disorder Office Visit 02/20/2020 9:00a [facility] Rakel Coughlin, SHARMILA R93.6 Abnormal findings on diagnostic imaging of limbs I10 Essential (primary) hyperten ruiz E78.2 Mixed hyperlipidemia M15.0 Primary generalized (osteo)a rthritis Z85.3 Personal history of malignan t neoplasm of breast E66.09 Other obesity due to excess calories Z68.37 Body mass index (BMI) 37.0-3 7.9, adult Assessments Date Code Description Provider 03/15/2020 I10 Essential (primary) hypertension SHARMILA Sethi 03/15/2020 E78.2 Mixed hyperlipidemia SHARMILA Sethi 03/15/2020 M15.0 Primary generalized (osteo)arthr itis SHARMILA Sethi 03/15/2020 R93.6 Abnormal findings on diagnostic imaging of limbs SHARMILA Sethi 03/15/2020 Z85.3 Personal history of malignant ne oplasm of breast AKOSUA SethiP 03/15/2020 E66.09 Other obesity due to excess ezequiel leanne Rakel Canales, [facility] 03/15/2020 Z68.37 Body mass index (BMI) 37.0-37.9, adult Rakel Canales, [facility] 03/15/2020 Z13.89 Encounter for screening for othe r disorder Rakel Canales, [facility] 02/20/2020 R93.6 Abnormal findings on diagnostic imaging of limbs Rakel Canales, [facility] 02/20/2020 I10 Essential (primary) hypertension Rakel Canales, [facility] 02/20/2020 E78.2 Mixed hyperlipidemia Rakel Canales , [facility] 02/20/2020 M15.0 Primary generalized (osteo)arthr itis Rakel Canales, [facility] 02/20/2020 Z85.3 Personal history of malignant ne oplasm of breast Rakel Canales, [facility] 02/20/2020 E66.09 Other obesity due to excess ezequiel leanne Rakel Canales, [facility] 02/20/2020 Z68.37 Body mass index (BMI) 37.0-37.9, adult Rakel Canales, [facility] 02/19/2020 I10 Essential (primary) hypertension Rakel Canales, [facility] 02/19/2020 I10 Essential (primary) hypertension Lab Schedule 02/19/2020 E78.2 Mixed hyperlipidemia Rakel Canales , [facility] 02/19/2020 E78.2 Mixed hyperlipidemia Lab Schedul e 01/25/2020 I10 Essential (primary) hypertension Tristen Dutta MD 01/25/2020 I10 Essential (primary) hypertension Lab Schedule Plan of Treatment Future Appointment(s):* 03/20/2021 9:20 am - SHARMILA Sethi at [facility] * 03/20/2021 9:00 am - Nurse #2 at [facility] 06/27/2020 - SHARMILA Sethi* All * New Medication:* Emergen-C Immune Plus - occasionally Functional Status Description No Information Available Mental Status Description No Information Available Referrals Description No Information Available
[2020-09-23] MEDS ORDERED: BSS IRR 500ML/OMIDRIA 4ML IRR BAG (OR ONLY) As Ordered ONE (12:20)
[2020-09-23] MEDS ORDERED: MIDAZOLAM INJ 2MG/2ML VIAL (J2250 PER 1MG) As Ordered ONE (12:46)
[2020-09-23] MEDS ORDERED: fentaNYL 100 MCG/2 ML INJECTION (J3010) As Ordered ONE (12:46)
[2020-09-23 13:24] VITALS: BP 132/69
--- NOTE | 2020-09-24 09:27 | RO ---
OPERATIVE NOTE DATE OF OPERATION: 09/23/2020 PREOPERATIVE DIAGNOSIS: 1. Visually significant nuclear sclerotic cataract, right eye. POSTOPERATIVE DIAGNOSIS: 1. Visually significant nuclear sclerotic cataract, right eye. PROCEDURE: 1. Cataract extraction with use of phacoemulsification, and placement of intraocular lens, AU00T0, 24.0 D, right eye. SURGEON: Colt Silva DO ANESTHESIA: Local (Omidria with MAC) COMPLICATIONS: None POSTOPERATIVE CONDITION: Stable INDICATIONS FOR SURGERY: 1. Blurred vision affecting patient's activities of daily living. DESCRIPTION OF PROCEDURE: The patient was seen in the preoperative area and properly identified. The correct operative eye was identified and marked. The patient received topical anesthetic, antibiotics, and topical dilating drops. The patient was then transferred to the operating room. The correct side was re-identified and a time-out was performed. The eye was prepped and draped in a sterile fashion. The eyelids were isolated with Tegaderm tape and the lids were held open with an adjustable speculum. A 1.0mm paracentesis incision was made. Omidria was then injected into the anterior chamber. Viscoelastic was then injected into the anterior chamber through the paracentesis. Using a 2.4mm sharp-tipped keratome, the anterior chamber was entered via a temporal clear cornea incision. A continuous curvilinear capsulorrhexis was created with Utrata forceps. Hydrodissection was performed with BSS on a blunt cannula until the nucleus was able to rotate freely. The crystalline lens was phacoemulsified and aspirated. Irrigation/aspiration was used to remove the cortical material Cohesive viscoelastic was placed into the capsular bag to deepen it. The implant was placed into the capsular bag and allowed to unfold. Placement was confirmed by visualizing the anterior capsulorrhexis. Irrigation/aspiration was used to remove the viscoelastic. The clear corneal incision was hydrated with BSS on a blunt cannula. The lens was well positioned. Intracameral antibiotic was injected into the anterior chamber. The incisions were then tested for leaks and found to be negative. The eye was then palpated for appropriate pressure and adjusted accordingly with BSS. The eyelid speculum was then carefully removed. A shield was placed over the eye. The patient tolerated the procedure well and was discharge to the recovery unit in a stable condition.
== END 2020-09-23 13:54 | disposition home or self-care (01) ==
LOC: M SDC 09:53
PROVIDERS: ATTEND Ophthalmology
DX: H25.11 Age-related nuclear cataract, right eye (principal); I10 Essential (primary) hypertension; K21.9 Gastro-esophageal reflux disease without esophagitis; Z85.3 Personal history of malignant neoplasm of breast; Z92.21 Personal history of antineoplastic chemotherapy; Z92.3 Personal history of irradiation; Z79.899 Other long term (current) drug therapy
CPT/HCPCS: 66984; J1097; J2250; J3010; V2632

== ENCOUNTER → 2021-05-02 | Outpatient (REF) | payer MEDICARE ==
[~2021-05-02] MED LIST changes: -CEFUROXIME 1MG/0.1ML INTRACAMERAL INJ As Ordered ONE; -DOCU-129 PO; +DOCU-153 PO; -DUOVISC (0.50ML VISCOAT/0.55ML PROVISC) OPHTH KIT As Ordered ONE; -LIDOCAINE 1% MDV 20ML VIAL SQ PRN; -OFLOXACIN 0.3 % (OCUFLOX) OPTH SOL 5ML OD ONE; -PHENYLEPHRINE 2.5% OPHTH SOL 2ML OD ONE; -POVIDONE-IODINE 5% OPHTH PREP SOL 30ML As Ordered ONE; -PROPARACAINE 0.5% OPHTH SOL 15ML OD ONE; -TROPICAMIDE 1% OPHTH SOLN 2ML OD ONE
== END ==
LOC: M LAB REF 16:21
PROVIDERS: ATTEND Nurse Practitioner Adult Health
DX: R30.0 Dysuria (principal)